=== PATIENT | male | born 1955 | race Caucasian/White ===

== ENCOUNTER 2023-11-26 08:48 | Observation (INO) ==
--- NOTE | 2023-10-27 11:57 | PAT Medication Instructions ---
Medication Instructions Date of Service October 27, 2023 Home Medications Vitamin D3 1 tab PO QAM aspirin 81 mg capsule 81 mg PO QAM celecoxib 100 mg capsule 100 mg PO HS clopidogrel 75 mg tablet 75 mg PO QAM doxepin 75 mg capsule 75 mg PO HS isosorbide mononitrate 30 mg tablet,extended release 24 hr 30 mg PO QAM levothyroxine 200 mcg tablet 200 mcg PO QAM magnesium 1 tab PO QAM nadolol 20 mg tablet 20 mg PO QAM rosuvastatin 40 mg tablet 40 mg PO QAM ASK your surgeon for instructions celecoxib 100 mg capsule 100 mg PO HS ASK your prescriber and surgeon clopidogrel 75 mg tablet 75 mg PO QAM (will need to hold Plavix/clopidogrel for at least 7 days prior to surgery in order to get spinal anesthesia) DO NOT take the morning of surgery Vitamin D3 1 tab PO QAM magnesium 1 tab PO QAM Take morning of surgery With a small sip of water, OTHERWISE NOTHING TO EAT OR DRINK AFTER MIDNIGHT: aspirin 81 mg capsule 81 mg PO QAM (unless surgeon directed otherwise) isosorbide mononitrate 30 mg tablet,extended release 24 hr 30 mg PO QAM levothyroxine 200 mcg tablet 200 mcg PO QAM nadolol 20 mg tablet 20 mg PO QAM rosuvastatin 40 mg tablet 40 mg PO QAM Take evening before surgery doxepin 75 mg capsule 75 mg PO HS Other Notes If you have any questions please call us at [phone] or [phone] or [phone] or [phone]
--- NOTE | 2023-10-27 12:28 | Anesthesiology Consultation ---
Date of Service October 27, 2023 Assessment & Plan (1) Encounter for pre-operative examination: Chart Review Chart Review: Acceptable Risk for Surgery (pending routine cardio visit if available ) and Patient seen in Pre Admission Testing - Please obtain upcoming routine cardio office visit if available ([facility]- Dr Martin) (being seen October 2023 per patient) - Patient is NOT an OPJ candidate (currently 23 hour obs) Per PAT appt on 10/27/23, no recent illness/disease exposures, illness related symptoms, or recent illness/disease positive tests. Will leave to surgeon's discretion if preop Covid testing needed Teaching & Discussion Pre-Anesthesia Teaching/Discussion Notes: Instructed NPO after midnight before surgery,except medications with 15 cc of water. Medication instructions provided according to the PAT guidelines. History Surgery Operation Date: 11/26/23 11:55 Proposed Procedures p Left Total Knee Arthroplasty - Jim Mays, Height/Weight Height: 5 ft 6 in Weight: 106.9 kg Allergies Allergy/AdvReac Type Severity Reaction Status Date / Time vancomycin Allergy Red Man's Verified 10/27/23 11:08 Disease Medications Home Medications Medication Instructions Recorded Confirmed Last Taken Vitamin D3 1 tab PO QAM 10/27/23 10/27/23 Unknown aspirin 81 mg capsule 81 mg PO QAM 10/27/23 10/27/23 Unknown celecoxib 100 mg capsule 100 mg PO HS 10/27/23 10/27/23 Unknown clopidogrel 75 mg tablet 75 mg PO QAM 10/27/23 10/27/23 Unknown doxepin 75 mg capsule 75 mg PO 10/27/23 10/27/23 Unknown isosorbide mononitrate 30 mg 30 mg PO QAM 10/27/23 10/27/23 Unknown tablet,extended release 24 hr levothyroxine 200 mcg tablet 200 mcg PO QAM 10/27/23 10/27/23 Unknown magnesium 1 tab PO QAM 10/27/23 10/27/23 Unknown nadolol 20 mg tablet 20 mg PO QAM 10/27/23 10/27/23 Unknown rosuvastatin 40 mg tablet 40 mg PO QAM 10/27/23 10/27/23 Unknown Past Medical History Medical History (Updated 10/31/23 @ 20:57 by Amy Sauer PA-C) CAD (coronary artery disease) s/p 3 cardiac stents 04/2022 Cardiac murmur ECHO 04/2022 showed no significant valvular disease Hx MRSA infection 2001, right shoulder, dx [facility]>no current issues Hyperlipidemia Hypertension Hypothyroidism nursing home current use of anticoagulant therapy Sleep apnea cpap Exercise / Class Metabolic Activity II 4-5 Yardwork/Stairs/Walk up hill (one flight of stairs - no chest pain or SOB; [place]- does daily activities without issues ) Past Surgical History Surgical History History of cardiac cath 04/2022, chest pressure, taken to [facility] in [place], x3 stents; f/u dr. martin, [facility] cardio History of carpal tunnel surgery of right wrist History of heart artery stent 04/2022, chest pressure, taken to [facility] in [place], x3 stents [employer]; f/u dr. martin, [facility] cardio Hx of colonoscopy Hx of lumbosacral spine surgery 1995, 1996, 2017>hardware intact Hx of repair of right rotator cuff 2001 Past Anesthesia History No Hx of Anesthesia Complications and No Family Hx of Anesthesia Complications History of PONV No Hx of PONV and No Hx of Motion Sickness Social History Smoking Status: Former smoker Do You Dip or Chew Tobacco: No Smoking End Date: 1992 Hx Alcohol Use: Yes Alcohol type: hard liquor alcohol intake frequency: a few times a week Hx Substance Use: No substance use type: does not use Review of Systems - Occ reflux- relieved with OTC Omeprazole Patient denies chest pain, shortness of breath, dyspnea on exertion, cough, wheezing, palpitations. No hx of seizures, stroke. No hx of blood clots or blood transfusions Physical Exam Vital Signs VITALS BP 117/61 P 58bpm TEMP 97.9 SP02 95% RESP 16 Constitutional no acute distress ENMT Mouth: no TMJ clicking Thyromental Distance: > or= 3.5 Finger Breadths (3.5) Mallampati Class: III Neck + short neck and + limited neck extension Respiratory normal respiratory effort; no respiratory distress Auscultation: lungs clear to auscultation bilaterally; no wheezes Cardiovascular Rate/Rhythm: regular rate and regular rhythm Heart Sounds: + murmur (II-III/ murmur ) Vessels: no carotid bruit Musculoskeletal Spine: no pain with cervical ROM Extremities: extremities normal to inspection Psychiatric Orientation: alert Lab Results Anesthesia Preop Results Results Anesthesia Widget: WBC 5.21 K/ul (4.8-10.8) 10/27/23 Hgb 14.0 g/dl (14.0-18.0) 10/27/23 Hct 42.0 % (42.0-52.0) 10/27/23 Plt 161 K/uL (130-400) 10/27/23 Na 140 mmol/L (136-145) 10/27/23 K 4.0 mmol/L (3.5-5.1) 10/27/23 Cl 107 mmol/L (98-107) 10/27/23 CO2 28 mmol/L (21-32) 10/27/23 BUN 18 mg/dl (6-23) 10/27/23 Creat 0.87 mg/dl (0.6-1.4) 10/27/23 Glucose Level 165 mg/dl (70-99(Fasting)) H 10/27/23 PT 10.9 Seconds (9.0-12.0) 10/27/23 PTT 25 Seconds (21-31) 10/27/23 INR 1.0 (0.9-1.1) 10/27/23 Blood Type A Positive 10/27/23 Antibody Screen NEGATIVE 10/27/23 Testing Electrocardiogram Date: 10/27/23 Findings: + NSR @ (60bpm) Normal EKG per cardio Chest X-Ray Date: 10/27/23 FINDINGS: No lines and tubes are seen. Cardiomegaly is noted. The aortic arch is calcified. The lungs are clear. No evidence of pleural effusion or pneumothorax. IMPRESSION: No acute chest disease. Echocardiogram Date: 05/02/22 EF: 55-60% LV Function: normal RWMA: + none Other Findings: no LVH or no diastolic dysfunction Valvular Disease: + no significant valvular disease RV systolic function is normal There is no pericardial effusion
--- NOTE | 2023-11-25 12:18 | History & Physical Report ---
Date of Service November 25, 2023 Assessment & Plan (1) Osteoarthritis of left knee: We will proceed with a left total knee arthroplasty. Postoperatively he will be started on aspirin and Plavix for DVT prophylaxis and kept overnight in the hospital for postop medical management. He plans to have the hospital set up home health for discharge. History of Present Illness Chief Complaint: Osteoarthritis of the left knee. Primary Care Provider: VIJAY PCP Morales is a pleasant 68-year-old male who has been dealing with chronically increasing left knee pain. He has been treated at another facility. He has had x-rays and MRIs of both knees. 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 After failing extensive conservative treatment, he has elected proceed with a left total knee arthroplasty. Allergies Allergy/AdvReac Type Severity Reaction Status Date / Time vancomycin Allergy Red Man's Verified 10/27/23 11:08 Disease Home Medications Medication Instructions Recorded Confirmed Type Vitamin D3 1 tab PO QAM 10/27/23 10/27/23 History aspirin 81 mg capsule 81 mg PO QAM 10/27/23 10/27/23 History celecoxib 100 mg capsule 100 mg PO HS 10/27/23 10/27/23 History clopidogrel 75 mg tablet 75 mg PO QAM 10/27/23 10/27/23 History doxepin 75 mg capsule 75 mg PO HS 10/27/23 10/27/23 History isosorbide mononitrate 30 mg 30 mg PO QAM 10/27/23 10/27/23 History tablet,extended release 24 hr levothyroxine 200 mcg tablet 200 mcg PO QAM 10/27/23 10/27/23 History magnesium 1 tab PO QAM 10/27/23 10/27/23 History nadolol 20 mg tablet 20 mg PO QAM 10/27/23 10/27/23 History rosuvastatin 40 mg tablet 40 mg PO QAM 10/27/23 10/27/23 History Past Med/Surg History Medical History Cardiac murmur ECHO 04/2022 showed no significant valvular disease CAD (coronary artery disease) s/p 3 cardiac stents (proximal to mid LAD and first diagonal )04/2022 Hx MRSA infection 2001, right shoulder, dx [facility]>no current issues ferry terminal supervisor current use of anticoagulant therapy Sleep apnea cpap Hypothyroidism Hyperlipidemia Hypertension Surgical History History of carpal tunnel surgery of right wrist Hx of repair of right rotator cuff 2002 Hx of lumbosacral spine surgery 1995, 1996, 2018>hardware intact Hx of colonoscopy History of heart artery stent 04/2022, chest pressure, taken to [facility] in [place], x3 stents [employer]; f/u dr. martin, [facility] cardio History of cardiac cath 04/2022, chest pressure, taken to [facility] in [place], x3 stents; f/u dr. martin, [facility] cardio Social History Smoking Status: Former smoker Tobacco Type: Cigarettes Smoking End Date: 1992; Second Hand Exposure: Yes (hx-none in last 25 years); Do You Dip or Chew Tobacco: No; Tobacco Cessation Education Requested by Patient: No Hx Alcohol Use: Yes Alcohol type: hard liquor Hx Substance Use: No Preferred Language: Monegasque Communication Ability: Effective Crystal Growing Technician Required: No Beliefs That Will Affect Care: None Current Living Situation: Spouse Other Information That Helps Us Care for You: No Feels Safe at Home: Yes Safety Concerns: Feels Safe At This Time Assistive Devices: None and CPAP Review of Systems All systems reviewed & are unremarkable except as noted in HPI & below. Physical Exam On physical examination of the left knee, he has a varus deformity. He has tenderness palpation of the distal medial femoral condyle and over the medial joint line. Constitutional WD/WN, vitals as above Eyes PERRL, conjunctivae normal, anicteric sclerae ENMT external ear and nose normal, oropharynx normal Neck trachea midline, no thyromegaly Respiratory normal respiratory effort Cardiovascular RRR, no murmur, no edema Gastrointestinal (Abdomen) normal bowel sounds, soft, nontender, no hepatosplenomegaly Psychiatric A+Ox3, euthymic affect Results & Data Results & Data Laboratory Results . Diagnostic Findings X-rays of the left knee show advanced medial compartmental arthritis with joint space narrowing, osteophyte formation, and [id number] articulation PG Care Time/CCT Total # of Minutes Spent Total Time Spent with Patient: Total time spent is greater than 50% in coordination of care (as documented) at patient's floor/unit and/or counseling patient: Coding Level of Care Code None Diagnoses Osteoarthritis of left knee M17.12
[~2023-11-26 08:48] MED LIST: ROPIVACAINE 0.5% 5 MG/ML 30 ML VIAL ONE
[2023-11-26] MEDS: LR 500ML BOLUS, THEN 15ML/HR IV SCH ×2 (09:26→09:41)
[2023-11-26] MEDS: ACETAMINOPHEN 500 MG TAB PO SCH ×2 (09:26→14:18)
[2023-11-26] MEDS: LR 60ML/HR IV SCH (09:26)
[2023-11-26] MEDS: FAMOTIDINE 20 MG TAB PO SCH (09:26)
[2023-11-26] MEDS: GABAPENTIN 300 MG CAP PO SCH (09:26)
[2023-11-26] MEDS: dexAMETHasone**PF** 10 MG/ML VIAL IV SCH (09:35)
[2023-11-26] MEDS ORDERED: fentaNYL citrate PF 100 MCG/2 ML VIAL IV PRN (10:08)
[2023-11-26] MEDS ORDERED: ATROPINE SULFATE 0.1 MG/ML 10ML SYR IV PRN (10:08)
[2023-11-26] MEDS ORDERED: HYDROmorphone INJ 2 MG/ML SYR/VIAL IV PRN (10:08)
[2023-11-26] MEDS ORDERED: ePHEDrine sulfate 50 MG/ML AMP IV PRN (10:08)
[2023-11-26] MEDS ORDERED: ONDANSETRON INJ 2 MG/ML 2 ML VIAL IV PRN ×2 (10:08→13:24)
--- NOTE | 2023-11-26 10:14 | History & Physical Bridge Note ---
Date of Service November 26, 2023 History & Physical Bridge Note I have examined the patient, reviewed the History & Physical and in the interval since the performance of the History & Physical I have noted the following changes of clinical significance: no changes noted
[2023-11-26] MEDS ORDERED: fentaNYL citrate PF 100 MCG/2 ML VIAL ONE (10:20)
[2023-11-26] MEDS ORDERED: MIDAZOLAM HCL 1 MG/ML 2ML VIAL ONE (10:20)
[2023-11-26] MEDS ORDERED: PROPOFOL IV EMULSION 10 MG/ML 20 ML VIAL IV ONE (10:38)
[2023-11-26] MEDS ORDERED: LIDOCAINE 2% 2 ML VIAL/AMP(20MG/ML) INFIL ONE (10:38)
[2023-11-26] MEDS: ORTHO JOINT ANESTHETIC ONE (10:54)
[2023-11-26] MEDS: TRANEXAMIC ACID 1,000 MG **IV Pre-op IV SCH (10:57)
[2023-11-26] MEDS: ceFAZolin 2000MG 2,000 MG/15 ML SYR IV SCH ×2 (11:33→18:27)
[2023-11-26] MEDS: ROPIV 0.5% 246mg, Ketorolac 30mg, EPINEPHrine 0.5mg in NSS INFIL SCH (11:44)
[2023-11-26] MEDS ORDERED: ePHEDrine sulfate 50 MG/5 ML SYR ONE (12:11)
[2023-11-26] MEDS: TRANEXAMIC ACID 1,000 MG **IV Intra-op IV SCH (12:21)
--- NOTE | 2023-11-26 13:15 | XRay Report ---
TWO VIEWS LEFT KNEE CLINICAL HISTORY: Postoperative examination. FINDINGS: AP and crosstable lateral portable views of the left knee are obtained. A left knee arthrop lasty is in near anatomic alignment. There has been undersurface remodeling of the patella. No acute fracture is seen. There are expected postoperative changes around the knee including skin clips, soft tissue edema, and subcutaneous gas. IMPRESSION: Expected postoperative changes status post left knee arthroplasty. No acute fracture is s een. ACT 112: Negative or not required by law. Electronically signed by: Brando Tavares M.D. 11/26/2023 1:14 PM
--- NOTE | 2023-11-26 13:16 | Anesthesiology Progress Note ---
Date of Service November 26, 2023 Anesthesia Post Procedure Vital Signs Vital Signs: Temp Pulse Pulse Resp BP BP Pulse Ox 11/26/23 13:05 55 L 21 121/74 96 11/26/23 12:55 59 L 17 119/76 97 11/26/23 12:46 36.0 C L 60 24 114/70 96 11/26/23 09:16 11/26/23 09:16 36.6 C 60 20 150/84 H 96 O2 Del Method 11/26/23 13:05 Room Air 11/26/23 12:55 Room Air 11/26/23 12:46 Room Air 11/26/23 09:16 Room Air 11/26/23 09:16 Room Air Transfer of Care Handoff Completed per policy Notes Mental Status: alert / awake / arousable and participated in evaluation Patient Amnestic to Procedure: Yes Nausea / Vomiting: adequately controlled Pain: adequately controlled Airway Patency, RR, SpO2: stable & adequate BP & HR: stable & adequate Hydration State: stable & adequate Neuraxial Anesthesia: was administered and sensory block is resolving Anesthetic Complications: no major complications apparent and Pt Satisfied with anesthetic care
--- NOTE | 2023-11-26 13:18 | Operative Report ---
PG Post Operative Report Pre & Post Diagnosis Operation Date: 11/26/23 11:00 Pre-Op Diagnosis: Degenerative Joint Disease Left Knee Post-Op Diagnosis: Degenerative Joint Disease Left Knee I identified the patient and participated in the time-out.: Yes Procedure Operation Date: 11/26/23 11:00 Actual Procedures p Left Total Knee Arthroplasty, Cemented(Left) - Jim Mays DO Surgeon Jim Mays DO Representative Personal Service Jim Larsen PA-C Estimated Blood Loss 30 Findings Consistent with Post-Op Diagnosis Specimens Left femoral and tibial bone Description of Procedure Implants used: I used a [employer] Person[employer] total knee arthroplasty system with a size 8 standard PS femur, F tibia, 34 oval patella, and a size 14 CPS polyethylene bearing. All components were cemented in place with Biomet cement. Morales arrived [facility] for the above procedure. He was seen in the preoperative holding area and the operative extremity was identified and signed. He was given a preoperative antibiotic, TXA, a spinal anesthetic and an adductor nerve block. He was taken back to the operating room and laid on the table in supine position. He was given basic sedation. The operative knee was then prepped and draped in sterile fashion. A timeout was done, and the patient and the operative extremity was properly identified. A midline incision was made directly over the patella. Dissection was taken down to the extensor mechanism. A medial parapatellar arthrotomy was used. The medial retinaculum was released and the fat pad was mostly excised. The knee was flexed and the ACL, PCL, and meniscus were removed. A drill was sent down the center of the femoral canal followed by an intramedullary alka. Off that alka a distal femoral cutting block was placed. 9 mm was resected off the distal femur at 5 of valgus. A posterior referencing AP sizing guide was then placed on the distal femur. The femur measured to be a size 8. 2 drill holes were placed in 3 of external rotation. A 4-in-1 cutting block was then impacted into place. Anterior, posterior, and chamfer cuts were then made. The proximal tibia was then exposed. An external tibial alignment guide was placed. A tibial cut guide was then anchored in place and the proximal tibia was then resected. The posterior aspect of the knee was then opened up and any additional meniscus fragments and osteophytes were removed. The tibia measured to be a size F. The tibial plate was then placed in the appropriate rotation and the tibia was drilled and punched. Trial components were then placed. I used a size 14 CPS polyethylene insert. The knee was brought through a full range of motion and felt to be stable. The peg holes for the femoral component were then drilled. The patella was then everted and 9 mm was resected off the posterior aspect of the patella. The patella measured to be a size 34 oval. 3 peg holes were then drilled. A trial patella was placed. The knee was once again brought through a full range of motion and felt to be stable. Trial components were then removed. The surrounding soft tissues were injected with 100 cc of an orthopedic pain control cocktail. All components were then cemented into place with Biomet cement. The final polyethylene insert was then snapped into place. Once cement was dry the tourniquet was deflated. Hemostasis was obtained. A dilute betadyne lavage was then done for 3 minutes. The joint was then irrigated with normal saline solution. The medial parapatellar arthrotomy was then closed with #1 Vicryl suture. The skin was closed with 2-0 Vicryl, 3-0V lock suture, and salo. A soft compressive dressing was placed. He was then transferred to a hospital bed and taken to the postanesthesia care unit in stable condition. He tolerated the procedure well. Jim Larsen PA-C, was present for the entire procedure. He was critical for patient positioning, prepping, draping, retraction exposure, wound closure and application of sterile dressing. I attest to the content of the Intraoperative Record and any orders documented therein. Any exceptions are noted below.
[2023-11-26] MEDS ORDERED: MAGNESIUM HYDROXIDE SUSP 30 ML UDC PO PRN (13:24)
[2023-11-26] MEDS ORDERED: METOCLOPRAMIDE HCL INJ 5 MG/ML 2 ML VIAL IV PRN (13:24)
[2023-11-26] MEDS ORDERED: HYDROmorphone INJ 0.5 MG/0.5 ML SYR IV PRN (13:24)
[2023-11-26] MEDS ORDERED: bisacodyL 10 MG SUPP PR PRN (13:24)
[2023-11-26] MEDS ORDERED: NALOXONE HCL 0.4 MG/1 ML VIAL/CARP IV PRN (13:24)
[2023-11-26] MEDS: SODIUM CHLORIDE 0.9% 1,000 ML IV SCH (13:38)
[2023-11-26] MEDS: KETOROLAC TROMETHAMINE 15 MG/ML VIAL IV SCH (17:16)
[2023-11-26] MEDS: DOCUSATE SODIUM 100 MG CAP PO SCH (20:12)
[2023-11-26] MEDS: SENNA 8.6 MG TAB PO SCH (20:13)
[2023-11-26] MEDS: ASPIRIN 81 MG ECTAB PO SCH (20:13)
[2023-11-26] MEDS: DOXEPIN HCL 75 MG CAPSULE PO SCH (22:09)
[2023-11-27] MEDS: LEVOTHYROXINE SODIUM 200 MCG TABLET PO SCH (06:10)
[2023-11-27] MEDS: nadoloL 40 MG TAB PO SCH (07:57)
[2023-11-27] MEDS: MULTIVITAMIN TAB PO SCH (07:58)
[2023-11-27] MEDS: ROSUVASTATIN CALCIUM 20 MG TAB PO SCH (07:58)
[2023-11-27] MEDS: CLOPIDOGREL BISULFATE 75 MG TAB PO SCH (07:58)
[2023-11-27] MEDS: dexAMETHasone 4 MG TAB PO SCH (07:58)
[2023-11-27] MEDS: ISOSORBIDE MONO EXTENDED REL 30 MG TABCR PO SCH (07:58)
--- NOTE | 2023-11-27 09:25 | Discharge Summary ---
Date of Service November 27, 2023 Admission HPI (Per Admitting) Morales is a pleasant 68-year-old male who has been dealing with chronically increasing left knee pain. He has been treated at another facility. He has had x-rays and MRIs of both knees. 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 After failing extensive conservative treatment, he has elected proceed with a left total knee arthroplasty. Admission Exam (Per Admitting) On physical examination of the left knee, he has a varus deformity. He has tenderness palpation of the distal medial femoral condyle and over the medial joint line. Principal Diagnosis Same as "Discharge Diagnosis" noted below under Discharge Instructions. Discharge Exam On physical examination of the left knee, the dressing is clean and dry. His leg is out in full extension. He has active dorsiflexion plantarflexion of the left ankle.. Discharge Data Procedures Performed Operation Date: 11/26/23 11:00 Actual Procedures p Left Total Knee Arthroplasty, Cemented(Left) - Jim Mays DO Ordered Studies 11/26/23 05:00 US - OR guided needle placemen Routine Hospital Course (1) Status post left knee replacement: On November 26, 2023 Morales arrived at [facility] and underwent a left knee replacement without complication. He had a spinal anesthetic. Postoperatively he was started on aspirin and Plavix for DVT prophylaxis and transferred to the general orthopedic floors. His hospital course was uneventful. On postop day #1, his vital signs were stable and his pain was well-controlled. He was able to put his feet well with physical therapy doing ambulation and range of motion exercises. He was then discharged home. He will follow-up with orthopedics in 2 weeks. PG Care Time/CCT Total # of Minutes Spent Total Time Spent with Patient: Total time spent is greater than 50% in coordination of care (as documented) at patient's floor/unit and/or counseling patient: Discharge Plan Discharge Items Patient Disposition: Home - Self-Care Reason For Visit: Degenerative Joint Disease Left Knee Discharge Diagnosis: Left knee replacement Activity: Per Instructions section Non-emergency contact: Surgeon Call non-emergency contact if: your wound has increased redness and your wound has increased drainage Follow-up/Referrals: [facility],[place], [facility] [Primary Care Provider] - Diet: Regular Addtl Attending Provider Instructions: Activity and Therapy Recommendations: * If you are using [facility] then therapy will be provided at your home until they feel you have accomplished all of your goals. * If you are using [facility] then Physical Therapy will be provided until they feel you are ready to start Outpatient Physical Therapy. * If you are not using home therapy then Outpatient Physical Therapy should start about 3-5 days from your day of surgery. Therapy will last about 6-10 weeks * It is important not to put a pillow under your knee when you are relaxing or sleeping. It is just as important to make sure you are getting your knee perfectly straight as it is to regain your knee bend. * You were shown a series of exercises in the hospital. Do these exercises three times each day including the exercises you were shown in physical therapy. * Get up and walk several times each day. For the first four weeks, try not to stand or walk for more than one hour at a time. If you do stand or walk for more than one hour, you will not hurt anything, but your leg will likely swell. * As you feel comfortable, you may change from the walker or crutches to a cane and then to independent walking. Medications: * Narcotic You will likely be sent home from the hospital with a prescription for the narcotic pain medication that worked best throughout your stay. * Cefadroxil -take the antibiotic twice a day for 10 days to help with infection. * Aspirin Most patients will be required to take Aspirin 81mg twice a day for 6 weeks after surgery. This is obtained [id number] and a prescription is not necessary. * Other medications may be prescribed for specific circumstances. If you have any questions, please call the office at . * Resume previous home medications unless otherwise instructed TEDs/Elastic Stockings: The white elastic stockings help limit swelling and prevent blood clots from forming in your legs.~ The more you wear them, the more they work. Wear them for six weeks. Dressing Care: The dressing can be changed after physical therapy on postop day #1. Daily dry dressing changes for a few days, especially if the incision is still draining some. If the incision is not draining then you may leave the salo open to air. If there is a little bit of drainage or if the salo are getting stuck on your clothing then cover the incision with a dry dressing. The salo will be removed at your 2 week follow-up appointment. Showering: You may shower 5 days from the day of surgery as long as the incision is no longer draining. You may shower with the salo exposed. Let soapy water run over the salo and pat them dry. Do not scrub or soak the incision. Things To Watch For: * Drainage from the incision site that occurs more than one week after your surgery. * Increased redness at the incision site. * Fever above 102 degrees Fahrenheit. * Unusual chest pain or shortness of breath. * Call [facility] at with any of the above pro blems Follow-Up Visit: Follow-up with Dr. Mays's PA (Jim Larsen) 2-3 weeks after your day of surgery. He will remove your salo and answer any questions. If you have any additional questions or concerns, Dr Mays is usually in the office at the same time and will be available An appointment was probably scheduled when you signed-up for surgery in the office. If you have any questions call Office Instructions: More detailed instructions as well as Frequently Asked Questions were provided in a folder by our office when you signed-up for surgery. Please review these instructions when you get home. If you have any further questions or concerns, please feel free to call the office at [phone] Pending Studies at Discharge: No Stand-Alone Forms: [facility], Pain - Opioid Pain Management Medications and DC Order Prescriptions: New oxycodone 5 mg Tablet 5 mg PO Q4H PRN (Reason: pain) Qty: 30 0RF cefadroxil 500 mg capsule 500 mg PO BID 10 Days Qty: 20 0RF Continued isosorbide mononitrate 30 mg tablet extended release 24 hr 30 mg PO QAM doxepin 75 mg capsule 75 mg PO HS clopidogrel 75 mg tablet 75 mg PO QAM nadolol 20 mg tablet 20 mg PO QAM levothyroxine 200 mcg tablet 200 mcg PO QAM celecoxib 100 mg capsule 100 mg PO HS rosuvastatin 40 mg tablet 40 mg PO QAM Vitamin D3 1 tab PO QAM magnesium 1 tab PO QAM Changed aspirin 81 mg Capsule 81 mg PO BID 42 Days Qty: 0 0RF Discharge Orders: Discharge Order (Routine); Ordered 11/27/23 Ordered By: Jim Aquino/Other Patient Handouts: Total Knee Replacement Admission Data Admit Date/Time: 11/26/23 12:45 Attending Provider: Jim Mays Admit Provider: Jim Mays Primary Care Provider: [place] Rosales Other Providers: [facility],Home Healthcare Other Interventions: Discharge Summary Assessment (RN) Last Done: 11/27/23 09:20
--- NOTE | 2023-11-27 09:25 | Orthopedic Progress Note ---
Date of Service November 27, 2023 Assessment & Plan (1) Status post left knee replacement: Overall he is doing very well. He is not having much pain in the left knee. He will be seen by physical therapy today for ambulation and range of motion exercises. The nursing staff can change his dressing after physical therapy. He is on aspirin and Plavix for DVT prophylaxis. He can be discharged home later today. He will follow-up with orthopedics in 2 weeks. Alexander Nielsen was seen and examined at bedside this morning. Overall is doing very well. He is not having much pain in the left knee. He has been up and ambulating to the bathroom. He has no complaints.. Review of Systems All systems reviewed & are unremarkable except as noted in HPI & below. Physical Exam On physical examination of the left knee, the dressing is clean and dry. His leg is out in full extension. He has active dorsiflexion plantarflexion of the left ankle.. Results & Data Results & Data Laboratory Results . Diagnostic Findings Postoperative x-rays of the left knee show the prosthesis to be in anatomic alignment without any evidence of fracture, his cage, or loosening.. PG Care Time/CCT Total # of Minutes Spent Total Time Spent with Patient: Total time spent is greater than 50% in coordination of care (as documented) at patient's floor/unit and/or counseling patient: Coding Level of Care Code 80839 Post Operative Follow-Up Diagnoses Status post left knee replacement Z96.652
[2023-11-27] MEDS: oxyCODONE HCL IR 5 MG TAB (IMMEDIATE RELEASE) PO PRN (09:54)
== END 2023-11-27 10:20 | disposition home health service (06) ==
LOC: 3E 08:48 → ASU 08:48

== ENCOUNTER 2023-12-06 20:50 | Observation (INO) ==
[2023-12-06 22:20] LABS: Alanine Aminotransferase 32 U/L (7-52); Albumin Globulin Ratio 1.3 (0.9-2); Alkaline Phosphatase 98 U/L (34-104); Anion Gap 8 (3-11); Aspartate Aminotransferase 31 U/L (13-39); BUN Creatinine Ratio 10.3 (10-20); Bilirubin,Total 0.6 mg/dl (0.2-1.0); Blood Urea Nitrogen 18 mg/dl (6-23); Carbon Dioxide 25 mmol/L (21-32); Chloride 100 mmol/L (98-107); Est GFR (Non-African American) 38.9 ml/min; Glucose 119 mg/dl (70-99(Fasting)); Potassium 4.4 mmol/L (3.5-5.1); Sodium 133 mmol/L (136-145)
[2023-12-06 22:25] LABS: Hematocrit (blood only) 39.7 % (42.0-52.0); Hemoglobin 13.2 g/dl (14.0-18.0); Mean Corpuscular Hemoglobin 29.6 pg (25.0-34.0); Mean Corpuscular Hgb Conc 33.2 g/dL (32.0-36.0); Mean Platelet Volume 9.5 fL (9.4-12.4); Platelet Count 192 K/uL (130-400); RDW Coefficient of Variation 13.7 % (11.5-14.5); RDW Standard Deviation 44.8 fL (36.4-46.3); Red Blood Count 4.46 M/uL (4.70-6.10); White Blood Count 5.29 K/ul (4.8-10.8)
[2023-12-06 22:27] LABS: Troponin I High Sensitivity 4.2 pg/ml (0-20)
[2023-12-06 22:45] LABS: Partial Thromboplastin Ratio 0.9; Partial Thromboplastin Time 25 Seconds (21-31); Prothrombin Time 10.9 Seconds (9.0-12.0)
--- NOTE | 2023-12-06 23:20 | Emergency Department Note ---
History of Present Illness General Chief complaint: Rectal Bleed Stated complaint: KNEE SURGERY 10 DAYS AGO,BLOOD IN STOOL,BLOODCLOTS Time Seen by Provider: 12/06/23 23:06 History of Present Illness This 68-year-old male that had a knee replacement [address] Mays presents ER complaining of fever, chills for the past few days. Patient states he does have some left knee discomfort but does not feel like his knee is infected. Patient was on cefadroxil and then was switched to Bactrim by Ortho. Patient has a history of MRSA. Patient denies chest pain, dyspnea, abdominal pain, vomiting, diarrhea, cough, congestion. Patient states he has had some blood in the stool but does have a history of hemorrhoids and constipation. Home Medications Medication Instructions Recorded Confirmed Type celecoxib 100 mg capsule 100 mg PO HS 10/27/23 12/07/23 History clopidogrel 75 mg tablet 75 mg PO QA 10/27/23 12/07/23 History doxepin 75 mg capsule 75 mg PO HS 10/27/23 12/07/23 History isosorbide mononitrate 30 mg 30 mg PO [facility] 10/27/23 12/07/23 History tablet,extended release 24 hr nadolol 20 mg tablet 20 mg PO [facility] 10/27/23 12/07/23 History rosuvastatin 40 mg tablet 40 mg PO [facility] 10/27/23 12/07/23 History aspirin 81 mg capsule 81 mg PO BID 42 days #0 caps 11/27/23 12/07/23 Rx oxycodone 5 mg tablet 5 mg PO Q4H PRN pain #30 tabs 11/27/23 12/07/23 Rx sulfamethoxazole 800 1 tab PO BID 7 days #14 tabs 12/01/23 12/07/23 Rx mg-trimethoprim 160 mg tablet (Bactrim DS) cholecalciferol (vitamin D3) 25 25 mcg PO DAILY 12/07/23 12/07/23 History mcg (1,000 unit) capsule (Vitamin D3) cyanocobalamin (vitamin B-12) 1,000 mcg PO DAILY 12/07/23 12/07/23 History 1,000 mcg tablet (Vitamin B-12) docusate sodium 100 mg capsule 100 mg PO BID 12/07/23 12/07/23 History levothyroxine 175 mcg tablet 175 mcg PO DAILYBB 12/07/23 12/07/23 History magnesium 250 mg tablet 250 mg PO DAILY 12/07/23 12/07/23 History potassium citrate 99 mg capsule 99 mg PO DAILY 12/07/23 12/07/23 History Allergies Allergy/AdvReac Type Severity Reaction Status Date / Time vancomycin Allergy Intermediate Red Man's Verified 12/07/23 00:48 Disease Past Med/Surg History Problem List (Updated 12/07/23 @ 02:58 by JUAN MANUEL Aaron) DVT prophylaxis THOMAS (acute kidney injury) Hematochezia (Acute) Fever (Acute) Status post left knee replacement (~11/2023) Osteoarthritis of left knee Medical History (Updated 12/07/23 @ 02:58 by JUAN MANUEL Aaron) Cardiac murmur ECHO 04/2022 showed no significant valvular disease CAD (coronary artery disease) s/p 3 cardiac stents (proximal to mid LAD and first diagonal )04/2022 Hx MRSA infection 2001, right shoulder, dx [facility]>no current issues group home current use of anticoagulant therapy Sleep apnea cpap Hypothyroidism Hyperlipidemia Hypertension Surgical History History of carpal tunnel surgery of right wrist Hx of repair of right rotator cuff 2001 Hx of lumbosacral spine surgery 1995, 1996, 2017>hardware intact Hx of colonoscopy History of heart artery stent 04/2022, chest pressure, taken to [facility] in [place], x3 stents [employer]; f/u dr. martin, [facility] cardio History of cardiac cath 04/2022, chest pressure, taken to [facility] in [place], x3 stents; f/u dr. martin, [facility] cardio Social History Smoking Status: Former smoker Tobacco Type: Cigarettes Second Hand Exposure: Yes (hx-none in last 25 years); Do You Dip or Chew Tobacco: No; Hx Alcohol Use: Yes Alcohol type: hard liquor Hx Substance Use: No Preferred Language: Yemeni Communication Ability: Effective Lamp Tester And Inspector Required: No Beliefs That Will Affect Care: None Current Living Situation: Spouse Feels Safe at Home: Yes Assistive Devices: CPAP and Walker Review of Systems A total of 10 systems reviewed and were otherwise negative Physical Exam Vital Signs Vital Signs - 24 hr 12/06/23 21:17 12/06/23 22:22 12/06/23 23:00 Temperature 38.1 C H Temperature Source Oral Pulse Rate 95 H 95 H Pulse Rate [Apical] 87 Pulse Rhythm Pulse Rhythm [Apical] Regular Pulse Strength [Apical] Normal Respiratory Rate 18 18 Respiratory Effort / Characteristics Non-Labored Spontaneous Non-Labored Spontaneous Respiratory Depth Normal Normal Respiratory Pattern Regular Regular Blood Pressure 147/77 H Blood Pressure [Right Arm] 156/86 H Blood Pressure Mean 100 Blood Pressure Mean [Right Arm] 109 Blood Pressure Position Sitting Blood Pressure Position [Right Arm] Lying Pulse Oximetry 96 98 Oxygen Delivery Method Room Air Room Air Sepsis Recent Fever Within 48 Hours Yes Sepsis New/Unexplained Change in Mental Status N/A Sepsis Action Taken by Nursing No Action Required 12/06/23 23:00 12/07/23 00:43 12/07/23 02:22 Temperature 38.9 C H Temperature Source Oral Pulse Rate 86 80 Pulse Rate [Apical] 92 H Pulse Rhythm Regular Pulse Rhythm [Apical] Regular Pulse Strength [Apical] Normal Respiratory Rate 18 18 Respiratory Effort / Characteristics Non-Labored Spontaneous Respiratory Depth Normal Respiratory Pattern Regular Blood Pressure Blood Pressure [Right Arm] 116/73 Blood Pressure Mean Blood Pressure Mean [Right Arm] 87 Blood Pressure Position Blood Pressure Position [Right Arm] Lying Pulse Oximetry 98 98 Oxygen Delivery Method Room Air Room Air Sepsis Recent Fever Within 48 Hours Sepsis New/Unexplained Change in Mental Status Sepsis Action Taken by Nursing VITALS: Vitals are noted on the nurse's note and reviewed by myself. Vital signs febrile. GENERAL: Pleasant gentleman with present, in no acute distress, nondiaphoretic, well-developed well-nourished. SKIN: The skin was without rashes, erythema, edema, or bruising. There is no tenting of the skin. Capillary reflex less than 2 seconds. HEAD: Normocephalic atraumatic. EARS: External auditory canals clear EYES: Pupils equal round and reactive to light and accommodation. Conjunctivae without injection, sclerae without icterus. Extraocular movements intact. NOSE: Patent, no discharge. MOUTH: Mucous membranes moist. Pharynx without erythema or exudate. Uvula midline. Airway patent. Tongue does not deviate. NECK: Supple without nuchal rigidity. No lymphadenopathy. No thyromegaly. Cervical spine is nontender. No JVD. HEART: Regular rate and rhythm LUNGS: Clear to auscultation bilaterally without wheezes, rales or rhonchi. No retractions or accessory muscle use. ABDOMEN: Positive bowel sounds x 4. Normal tympanic percussion. Soft, nontender, without masses or organomegaly. Garibay sign negative. No guarding or rebound tenderness. No CVA tenderness MUSCULOSKELETAL: No muscle atrophy, erythema, or edema noted. Left knee with salo intact with mild edema and warmth present. No drainage. No dehiscence. No signs of obvious cellulitis. Pedal pulses +2 equal present bilaterally. NEURO: Patient was alert and oriented to person place and time. Normal sensation to light and sharp touch. No focal neurological deficits. Course Administered Medications Discontinued Medications Sodium Chloride (Nss) 1,000 mls @ 999 mls/hr IV .Q1H1M ONE Stop: 12/07/23 00:15 Last Infusion: 12/07/23 01:21 Dose: Infused Documented By: Admin: 12/06/23 23:56 Dose: 999 mls/hr Documented By: BRITTANY Ceftriaxone Sodium (Rocephin) 2,000 mg in 50 mls @ 100 mls/hr IV NOW STA Stop: 12/06/23 23:44 Last Infusion: 12/07/23 00:35 Dose: Infused Documented By: Admin: 12/06/23 23:56 Dose: 100 mls/hr Documented By: BRITTANY Daptomycin 500 mg/ Syringe 10 mls @ 5 mls/min IV NOW STA; Protocol Stop: 12/06/23 23:16 Last Admin: 12/06/23 23:57 Dose: 5 mls/min Documented By: BRITTANY Acetaminophen (Ofirmev) 1,000 mg in 100 mls @ 400 mls/hr IV NOW STA Stop: 12/07/23 00:14 Last Infusion: 12/07/23 01:21 Dose: Infused Documented By: Admin: 12/07/23 00:46 Dose: 400 mls/hr Documented By: CLAYTON Ioversol (Optiray 320 125ml) 125 ml IV ONCE ONE Stop: 12/06/23 23:53 Last Admin: 12/06/23 23:52 Dose: 119 ml Documented By: MASON Medical Decision Making Medical Records Attestation: I reviewed the patient's medical records. Home Medications Current Medication List: was personally reviewed by me Laboratory Data Attestation: I reviewed the patient's lab results. 12/06/23 21:43 12/06/23 21:43 Lab Results 12/06/23 12/06/23 12/06/23 Range/Units 21:43 21:50 23:16 WBC 5.29 (4.8-10.8) K/ul RBC 4.46 L (4.70-6.10) M/uL Hgb 13.2 L (14.0-18.0) g/dl Hct 39.7 L (42.0-52.0) % MCV 89.0 (80.0-100.0) fL MCH 29.6 (25.0-34.0) pg MCHC 33.2 (32.0-36.0) g/dL RDW Std Deviation 44.8 (36.4-46.3) fL RDW Coeff of Pramod 13.7 (11.5-14.5) % Plt Count 192 (130-400) K/uL MPV 9.5 (9.4-12.4) fL ESR 22 H (0-20) mm/hr PT 10.9 (9.0-12.0) Seconds INR 1.0 (0.9-1.1) APTT 25 (21-31) Seconds PTT Ratio 0.9 Sodium 133 L (136-145) mmol/L Potassium 4.4 (3.5-5.1) mmol/L Chloride 100 (98-107) mmol/L Carbon Dioxide 25 (21-32) mmol/L Anion Gap 8 (3-11) BUN 18 (6-23) mg/dl Creatinine 1.74 H (0.6-1.4) mg/dl Est Cr Clr Drug Dosing Not Reportable Est GFR ( Amer) 45.0 ml/min Est GFR (Non-Af Amer) 38.9 ml/min BUN/Creatinine Ratio 10.3 (10-20) Glucose 119 H (70-99(Fasting)) mg/dl Lactate 1.4 (0.4-2.0) mmol/L Calcium 9.0 (8.6-10.3) mg/dl Total Bilirubin 0.6 (0.2-1.0) mg/dl AST 31 (13-39) U/L ALT 32 (7-52) U/L Alkaline Phosphatase 98 (34-104) U/L Troponin I High Sens 4.2 (0-20) pg/ml C-Reactive Protein 1.71 H (0-0.5) mg/dl Total Protein 7.0 (6.0-8.3) gm/dl Albumin 4.0 (3.4-5.0) gm/dl Globulin 3.0 (2.5-4.0) gm/dl Albumin/Globulin Ratio 1.3 (0.9-2) Procalcitonin (0-0.5) ng/ml Urine Color Urine Appearance (Clear) Urine pH (4.5-7.5) Ur Specific [place] (1.000-1.030) Urine Protein (Negative) Urine Glucose (UA) (Negative) Urine Ketones (Negative) Urine Blood (Negative) Urine Nitrite (Negative) Urine Bilirubin (Negative) Urine Urobilinogen (Negative) Ur Leukocyte Esterase (Negative) Urine WBC (Auto) (0-5) /hpf Urine RBC (Auto) (0-2) /hpf U Hyaline Cast (Auto) (0-2) /lpf U Epithel Cells (Auto) (0-2) /hpf Urine Bacteria (Auto) (None Seen) Urine Sperm (None Prsent) POC Stool Occult Blood (Negative) Adenovirus (PCR) Not Detected (NotDetected) B. pertussis DNA (PCR) Not Detected (NotDetected) B.parapertussis DNA PCR Not Detected (NotDetected) C. pneumoniae DNA (PCR) Not Detected (NotDetected) Coronavirus OC43 (PCR) Not Detected (NotDetected) Coronavirus HKU1 (PCR) Not Detected (NotDetected) Coronavirus 229E (PCR) Not Detected (NotDetected) SARS-CoV-2 (PCR) Not Detected (NotDetected) Coronavirus NL63 (PCR) Not Detected (NotDetected) Human Metapneumovir PCR Not Detected (NotDetected) Influenza Type A (PCR) Not Detected (NotDetected) Influenza Type B (PCR) Not Detected (NotDetected) M. pneumoniae (PCR) Not Detected (NotDetected) Parainfluenza 1 (PCR) Not Detected (NotDetected) Parainfluenza 2 (PCR) Not Detected (NotDetected) Parainfluenza 3 (PCR) Not Detected (NotDetected) Parainfluenza 4 (PCR) Not Detected (NotDetected) RSV (PCR) Not Detected (NotDetected) Entero/Rhino (PCR) Not Detected (NotDetected) Blood Type A Positive Antibody Screen NEGATIVE 12/07/23 12/07/23 12/07/23 Range/Units 00:00 00:40 Unknown WBC (4.8-10.8) K/ul RBC (4.70-6.10) M/uL Hgb (14.0-18.0) g/dl Hct (42.0-52.0) % MCV (80.0-100.0) fL MCH (25.0-34.0) pg MCHC (32.0-36.0) g/dL RDW Std Deviation (36.4-46.3) fL RDW Coeff of Pramod (11.5-14.5) % Plt Count (130-400) K/uL MPV (9.4-12.4) fL ESR (0-20) mm/hr PT (9.0-12.0) Seconds INR (0.9-1.1) APTT (21-31) Seconds PTT Ratio Sodium (136-145) mmol/L Potassium (3.5-5.1) mmol/L Chloride (98-107) mmol/L Carbon Dioxide (21-32) mmol/L Anion Gap (3-11) BUN (6-23) mg/dl Creatinine (0.6-1.4) mg/dl Est Cr Clr Drug Dosing Est GFR ( Amer) ml/min Est GFR (Non-Af Amer) ml/min BUN/Creatinine Ratio (10-20) Glucose (70-99(Fasting)) mg/dl Lactate (0.4-2.0) mmol/L Calcium (8.6-10.3) mg/dl Total Bilirubin (0.2-1.0) mg/dl AST (13-39) U/L ALT (7-52) U/L Alkaline Phosphatase (34-104) U/L Troponin I High Sens (0-20) pg/ml C-Reactive Protein (0-0.5) mg/dl Total Protein (6.0-8.3) gm/dl Albumin (3.4-5.0) gm/dl Globulin (2.5-4.0) gm/dl Albumin/Globulin Ratio (0.9-2) Procalcitonin 0.15 (0-0.5) ng/ml Urine Color Yellow Urine Appearance Clear (Clear) Urine pH 6.5 (4.5-7.5) Ur Specific [place] > 1.045 H (1.000-1.030) Urine Protein Trace H (Negative) Urine Glucose (UA) Negative (Negative) Urine Ketones Negative (Negative) Urine Blood Negative (Negative) Urine Nitrite Negative (Negative) Urine Bilirubin Negative (Negative) Urine Urobilinogen Negative (Negative) Ur Leukocyte Esterase Negative (Negative) Urine WBC (Auto) 0-5 (0-5) /hpf Urine RBC (Auto) 0-2 (0-2) /hpf U Hyaline Cast (Auto) 0-2 (0-2) /lpf U Epithel Cells (Auto) 0-2 (0-2) /hpf Urine Bacteria (Auto) None Seen (None Seen) Urine Sperm Present A (None Prsent) POC Stool Occult Blood Positive A (Negative) Adenovirus (PCR) (NotDetected) B. pertussis DNA (PCR) (NotDetected) B.parapertussis DNA PCR (NotDetected) C. pneumoniae DNA (PCR) (NotDetected) Coronavirus OC43 (PCR) (NotDetected) Coronavirus HKU1 (PCR) (NotDetected) Coronavirus 229E (PCR) (NotDetected) SARS-CoV-2 (PCR) (NotDetected) Coronavirus NL63 (PCR) (NotDetected) Human Metapneumovir PCR (NotDetected) Influenza Type A (PCR) (NotDetected) Influenza Type B (PCR) (NotDetected) M. pneumoniae (PCR) (NotDetected) Parainfluenza 1 (PCR) (NotDetected) Parainfluenza 2 (PCR) (NotDetected) Parainfluenza 3 (PCR) (NotDetected) Parainfluenza 4 (PCR) (NotDetected) RSV (PCR) (NotDetected) Entero/Rhino (PCR) (NotDetected) Blood Type Antibody Screen Imaging Data Attestation: I personally reviewed and interpreted this imaging study as follows: Radiologist's Impression: Chest CTA 12/06/23 23:15 Exam(s): CTA CHEST IV Amt: 119 ML OPTIRAY 320 EXAM: CT Angiography Chest With Intravenous Contrast CLINICAL HISTORY: Reason for exam: PE, recent OR. TECHNIQUE: Axial computed tomographic angiography images of the chest with intravenous contrast. CTDI is 73.53 mGy and DLP is 2158.09 mGy-cm. Automated exposure control was utilized for the study. A dose lowering technique was utilized adhering to the principles of ALARA. MIP reconstructed images were created and reviewed. COMPARISON: No relevant prior studies available. FINDINGS: LUNGS: No focal consolidation, pleural effusion, or pneumothorax. Atelectasis at the lung bases. HEART: Cardiomegaly. VASCULATURE: No acute pulmonary embolism. Atherosclerotic changes of the aorta. THYROID: Within normal limits. MEDIASTINUM + LYMPH NODES: There are no pathologically enlarged mediastinal, hilar, or axillary lymph nodes. SUPERIOR ABDOMEN: Hepatic steatosis. MUSCULOSKELETAL: Degenerative changes. IMPRESSION: No acute pulmonary embolism. Electronically signed by: Roberto Carlos Rivera MD 12/07/23 01:39 AM Abdomen/Pelvis CT 12/06/23 23:18 Exam(s): CT ABDOMEN + PELVIS With Contrast IV Amt: 119 ML OPTIRAY 320 EXAM: CT Abdomen and Pelvis With Intravenous Contrast CLINICAL HISTORY: Reason for exam: sepsis. TECHNIQUE: Axial computed tomography images of the abdomen and pelvis with intravenous contrast. CTDI is 73.53 mGy and DLP is 2158.09 mGy-cm. Automated exposure control was utilized for the study. A dose lowering technique was utilized adhering to the principles of ALARA. CONTRAST: Patient received 119 ML OPTIRAY 320 of IV contrast COMPARISON: No relevant prior studies available. FINDINGS: Lung bases: Unremarkable. No mass. No consolidation. Mediastinum: Small hiatal hernia. ABDOMEN: Liver: Hepatic steatosis. Gallbladder and bile ducts: Unremarkable. No calcified stones. No ductal dilation. Pancreas: Unremarkable. No mass. No ductal dilation. Spleen: Unremarkable. No splenomegaly. Adrenals: Unremarkable. No mass. Kidneys and ureters: Unremarkable. No solid mass. No hydronephrosis. Stomach and bowel: Unremarkable. No obstruction. No mucosal thickening. PELVIS: Appendix: No findings to suggest acute appendicitis. Bladder: Unremarkable. No mass. Reproductive: Unremarkable as visualized. ABDOMEN and PELVIS: Intraperitoneal space: Unremarkable. No free air. No significant fluid collection. Bones/joints: Degenerative changes of the spine. Posterior fusion L5- S1. No acute fracture. No dislocation. Soft tissues: Unremarkable. Vasculature: Atherosclerotic changes of the aorta. No abdominal aortic aneurysm. Lymph nodes: Unremarkable. No enlarged lymph nodes. IMPRESSION: No acute findings in the abdomen or pelvis. Electronically signed by: Roberto Carlos Rivera MD 12/07/23 01:44 AM MDM Narrative Prior records/ancillary studies reviewed. Triage Nursing notes reviewed. Additional history obtained from family. The patient's history was concerning for fever. Differential diagnosis: Etiologies such as viral syndrome, postsurgical infection, otitis, pharyngitis, pneumonia, influenza, meningitis, urinary tract infection, sepsis, bacteremia, as well as others were entertained. Physical examination: As above ER treatment provided: An order was placed for continuous cardiac monitoring. The monitor shows a rate of 60-100 with a sinus rhythm per my interpretation. Rocephin, daptomycin, IV fluids, Tylenol On reassessment the patient felt better. Diagnostics interpreted by me: ECG: Ordered for weakness EKG: Normal sinus, normal intervals, no acute ST-T wave changes. Impression normal sinus rhythm independent interpreted by myself The labs Independently Interpreted by myself revealed no worrisome leukocytosis, minimally elevated inflammatory markers. Negative BioFire. Blood cultures pending Imaging studies: Chest x-ray with no acute consolidation, pneumothorax or free air per my independent interpretation Knee x-ray with no fracture, malalignment or dislocation per my independent interpretation CTs as above Consultation: A consultation was placed with orthopedics, Dr. Valencia. The case was discussed and diagnostics were reviewed. He does not believe the knee is infected and recommends continuation of antibiotics and discharge with outpatient follow-up. Medicine was consulted and case discussed. Patient be evaluated medicine for possible admission. This appears to be consistent with fever with unclear etiology. Patient is 10 days out from knee replacement. He had a fever for the past few days. His symptoms have been getting worse. His knee is somewhat warm compared to his other knee but no overt signs of infection. X-ray shows no pneumonia. Urine is not infected. BioFire is negative. Blood cultures pending. Medicine is consulted and case discussed. Patient be admitted to the medical service. By the evaluation outlined above emergent etiologies such as otitis, pharyngitis, pneumonia, meningitis, urinary tract infection, sepsis, bacteremia, as well as others were deemed relatively unlikely. The pt informed about the findings as listed above. All questions were answered and pleased with the treatment. The chart was completed utilizing [employer] Speech voice recognition software. Grammatical errors, random word insertions, pronoun errors, and incomplete sentences are an occassional consequence of this system due to software limitations, ambient noise, and hardware issues. Any formal questions or concerns about the content, text, or information contained within the body of this dictation should be directly addressed to the physician production assistant for clarification. Impression & Plan Fever, Hematochezia Discharge Plan Visit Data Chief Complaint: Rectal Bleed Stated Complaint: KNEE SURGERY 10 DAYS AGO,BLOOD IN STOOL,BLOODCLOTS ED Provider: Casper Becerra ED Midlevel Provider: Alaina Dash Discharge Problem: Fever, Hematochezia Patient Disposition: Admitted As Inpatient Condition: Good Forms Stand Alone Forms: [facility] [place] [employer] Prescriptions Prescriptions: No Action sulfamethoxazole-trimethoprim [Bactrim DS] 800-160 mg tablet 1 tab PO BID 7 Days Qty: 14 0RF Rx Instructions: STARTED 12/01/23 FOR 7 DAYS levothyroxine 175 mcg tablet 175 mcg PO DAILYBB cyanocobalamin (vitamin B-12) [Vitamin B-12] 1,000 mcg Tablet 1,000 mcg PO DAILY docusate sodium 100 mg Capsule 100 mg PO BID magnesium 250 mg Tablet 250 mg PO DAILY cholecalciferol (vitamin D3) [Vitamin D3] 25 mcg (1,000 unit) Capsule 25 mcg PO DAILY potassium citrate 99 mg Capsule 99 mg PO DAILY isosorbide mononitrate 30 mg tablet extended release 24 hr 30 mg PO QAM doxepin 75 mg capsule 75 mg PO HS clopidogrel 75 mg tablet 75 mg PO QAM nadolol 20 mg tablet 20 mg PO QAM celecoxib 100 mg capsule 100 mg PO HS rosuvastatin 40 mg tablet 40 mg PO QAM oxycodone 5 mg Tablet 5 mg PO Q4H PRN (Reason: pain) Qty: 30 0RF aspirin 81 mg Capsule 81 mg PO BID 42 Days Qty: 0 0RF Referrals Referrals: [place], JUAN MANUEL [Primary Care Provider] - Discharge Problem: Fever Qualifiers: Fever type: unspecified Qualified Code(s): R50.9 - Fever, unspecified
[2023-12-06] MEDS: OPTIRAY 320 125ml IV ONE (23:52)
[2023-12-06] MEDS: cefTRIAXone SODIUM 2,000 MG/50 ML BAG IV STA (23:56)
[2023-12-06] MEDS: SODIUM CHLORIDE 0.9% 1,000 ML IV ONE (23:56)
[2023-12-06] MEDS: DAPTOmycin 500 MG in SYRINGE 0 ML IV STA (23:57)
[2023-12-06 23:59] LABS: C Reactive Protein 1.71 mg/dl (0-0.5)
[2023-12-07] MEDS: ACETAMINOPHEN 1,000 MG/100 ML VIAL IV STA (00:46)
[2023-12-07 00:57] LABS: Adenovirus PCR Not Detected (NotDetected); Bordetella parapertussis PCR Not Detected (NotDetected); Bordetella pertussis PCR Not Detected (NotDetected); Chlamydia pneumoniae PCR Not Detected (NotDetected); Coronavirus 229E PCR Not Detected (NotDetected); Coronavirus CoV-2 (COVID19)PCR Not Detected (NotDetected); Coronavirus HKU1 PCR Not Detected (NotDetected); Coronavirus NL63 PCR Not Detected (NotDetected); Coronavirus OC43PCR Not Detected (NotDetected); Human Metapneumovirus PCR Not Detected (NotDetected); Influenza A PCR Not Detected (NotDetected); Influenza B PCR Not Detected (NotDetected); Mycoplasma pneumoniae PCR Not Detected (NotDetected); Parainfluenza Virus 1 PCR Not Detected (NotDetected); Parainfluenza Virus 2 PCR Not Detected (NotDetected); Parainfluenza Virus 3 PCR Not Detected (NotDetected); Parainfluenza Virus 4 PCR Not Detected (NotDetected); Respiratory Syncytial VirusPCR Not Detected (NotDetected); Rhinovirus/Enterovirus PCR Not Detected (NotDetected)
[2023-12-07 01:26] LABS: Appearance Urine Clear (Clear); Bacteria Urine Automated None Seen (None Seen); Bilirubin Urine Negative (Negative); Blood Urine Negative (Negative); Cast Urine Automated 0-2 /lpf (0-2); Color Urine Yellow; Epithelial Cell Urine Auto 0-2 /hpf (0-2); Glucose Urine UA Negative (Negative); Ketones Urine Negative (Negative); Leukocyte Esterase Urine Negative (Negative); Nitrite Urine Negative (Negative); Protein Urine Trace (Negative); RBC Urine Automated 0-2 /hpf (0-2); Specific Gravity Urine > 1.045 (1.000-1.030); Sperm Urine Present (None Prsent); Urobilinogen Urine Negative (Negative); WBC Urine Automated 0-5 /hpf (0-5); pH Urine 6.5 (4.5-7.5)
--- NOTE | 2023-12-07 01:40 | CT Scan Report ---
Exam(s): CTA CHEST IV Amt: 119 ML OPTIRAY 320 EXAM: CT Angiography Chest With Intravenous Contrast CLINICAL HISTORY: Reason for exam: PE, recent OR. TECHNIQUE: Axial computed tomographic angiography images of the chest with intravenous contrast. CTDI is 73.53 mGy and DLP is 2158.09 mGy-cm. Automated exposure control was utilized for the study. A dose lowering technique was utilized adhering to the principles of ALARA. MIP reconstructed images were created and reviewed. COMPARISON: No relevant prior studies available. FINDINGS: LUNGS: No focal consolidation, pleural effusion, or pneumothorax. Atelectasis at the lung bases. HEART: Cardiomegaly. VASCULATURE: No acute pulmonary embolism. Atherosclerotic changes of the aorta. THYROID: Within normal limits. MEDIASTINUM + LYMPH NODES: There are no pathologically enlarged mediastinal, hilar, or axillary lymph nodes. SUPERIOR ABDOMEN: Hepatic steatosis. MUSCULOSKELETAL: Degenerative changes. IMPRESSION: No acute pulmonary embolism. Electronically signed by: Roberto Carlos Rivera MD 12/07/23 01:39 AM
--- NOTE | 2023-12-07 01:45 | CT Scan Report ---
Exam(s): CT ABDOMEN + PELVIS With Contrast IV Amt: 119 ML OPTIRAY 320 EXAM: CT Abdomen and Pelvis With Intravenous Contrast CLINICAL HISTORY: Reason for exam: sepsis. TECHNIQUE: Axial computed tomography images of the abdomen and pelvis with intravenous contrast. CTDI is 73.53 mGy and DLP is 2158.09 mGy-cm. Automated exposure control was utilized for the study. A dose lowering technique was utilized adhering to the principles of ALARA. CONTRAST: Patient received 119 ML OPTIRAY 320 of IV contrast COMPARISON: No relevant prior studies available. FINDINGS: Lung bases: Unremarkable. No mass. No consolidation. Mediastinum: Small hiatal hernia. ABDOMEN: Liver: Hepatic steatosis. Gallbladder and bile ducts: Unremarkable. No calcified stones. No ductal dilation. Pancreas: Unremarkable. No mass. No ductal dilation. Spleen: Unremarkable. No splenomegaly. Adrenals: Unremarkable. No mass. Kidneys and ureters: Unremarkable. No solid mass. No hydronephrosis. Stomach and bowel: Unremarkable. No obstruction. No mucosal thickening. PELVIS: Appendix: No findings to suggest acute appendicitis. Bladder: Unremarkable. No mass. Reproductive: Unremarkable as visualized. ABDOMEN and PELVIS: Intraperitoneal space: Unremarkable. No free air. No significant fluid collection. Bones/joints: Degenerative changes of the spine. Posterior fusion L5- S1. No acute fracture. No dislocation. Soft tissues: Unremarkable. Vasculature: Atherosclerotic changes of the aorta. No abdominal aortic aneurysm. Lymph nodes: Unremarkable. No enlarged lymph nodes. IMPRESSION: No acute findings in the abdomen or pelvis. Electronically signed by: Roberto Carlos Rivera MD 12/07/23 01:44 AM
--- NOTE | 2023-12-07 02:29 | History & Physical Report ---
Date of Service December 07, 2023 Assessment & Plan (1) Fever: Plan: Patient presents with fever- hemodynamically stable and without SIRS criteria, or leukocytosis - NO acute findings on CXR and/or CT abdomen/pelvis - Knee appears to be healing well with no obvious sign of infection noted- consider ortho consultation for eval - Await blood and urine culture - PCT pending - Will place on empiric antibiotics at this time with Rocephin and Daptomycin - Further work up as clinical picture becomes more clear- for now continue with ultrasounds of legs- eval for DVT as possible cause (2) Hematochezia: Plan: Patient reports passage of blood clots with stools with straining - he states it has been a while since last colonoscopy - He is without lower quad abdominal pain and no pathology commented on on CT abdomen and pelvis - abdomen is not tender - Hemorrhoids vs ? Diverticular bleed- HGB levels stable - Hold ASA and PLAVIX at this time- RESTART at earliest opportunity once hemodynamics and HGB proven stable (3) THOMAS (acute kidney injury): Plan: Likely secondary to bactrim and mild dehydration as evidence by SG 1.045 - Provide 1liter of LR and then encourage PO intake - trend daily BMP (4) Status post left knee replacement: Plan: As per HPI- appears to be healing well- was discharged on prophylactic antibiotics- Bactrim likely contributing to THOMAS - Hold Bactrim abx as above (5) CAD (coronary artery disease): Plan: History of - with stents to LAD proximal and mid. With residucal non-occlusive RCA disease - Continue medical management with statin, ISMN - As above restart asa at earliest opportunity (6) Hypothyroidism: Plan: Continue synthroid (7) Sleep apnea: Plan: CPAP with autopap as patient is unsure of his settings - to bring in home CPAP at earliest convienence (8) DVT prophylaxis: Plan: TEDS- ambulation - restart asa/Plavix at earliest opportunity as above History of Present Illness Primary Care Provider: JUAN MANUEL Fox 68 YOM with medical history of: Arthritis, GERD, HTN, Hx MRSA infection , HLD, CAD with stents (2021), MARJAN, Hypothyroidism, Obesity. Patient presents to the EMD today for complaints of fever, chills, feeling weak, and passing of blood clots in stool. Patient states that this has been going on for the past two days or so. He reports no sinus congestion, cough, abdominal pain, or urinary discomfort. He is however s/p 10 days of LEFT TKA performed here by Dr. Mays. He reports that he is on ASA and Plavix for DVT prophy post surgery as well as taking another asa at night. He also reports that he is placed on Bactrim by orthopaedics secondary to hx of "being susceptible to MRSA infection". He was placed on Cefadroxil on discharge and now on Bactrim per his report. He reports that he struggles with constipation and diarrhea at home and has noted passage of blood clots in his stools over the past few days as well. In the EMD the patient had routine labs performed, he was noted to febrile to 38.9, had blood cultures drawn, CT of abdomen and pelvis performed, CXR, and Knee Xray. His labs are without leukocytosis. He is noted with elevated ESR and CRP- will add procalcitonin on as well. His HGB levels are stable as well. CT abdomen and pelvis without acute source noted, he is with normal lipase as well as LFTS. Respiratory biofire is negative. He is pending ultrasound of his legs to eval for DVT. Left knee appears to be healing well without erythema or drainage and stalples are well approximated. Overall fever with no clear source of infection at this time. Await blood cultures, urine culture. Will place on empiric antibiotics in form of Rocephin and Daptomycin. Follow clinical course. For his report of bloody stools, will hold his ASA and Plavix for now, with likely grant of restarting these soon if we can trend out his bowel movements as well as trend HGB levels in am. CODE: FULL Allergies Allergy/AdvReac Type Severity Reaction Status Date / Time vancomycin Allergy Intermediate Red Man's Verified 12/07/23 00:48 Disease Home Medications Medication Instructions Recorded Confirmed Type celecoxib 100 mg capsule 100 mg PO HS 10/27/23 12/07/23 History clopidogrel 75 mg tablet 75 mg PO QAM 10/27/23 12/07/23 History doxepin 75 mg capsule 75 mg PO HS 10/27/23 12/07/23 History isosorbide mononitrate 30 mg 30 mg PO QAM 10/27/23 12/07/23 History tablet,extended release 24 hr nadolol 20 mg tablet 20 mg PO QAM 10/27/23 12/07/23 History rosuvastatin 40 mg tablet 40 mg PO QAM 10/27/23 12/07/23 History aspirin 81 mg capsule 81 mg PO BID 42 days #0 caps 11/27/23 12/07/23 Rx oxycodone 5 mg tablet 5 mg PO Q4H PRN pain #30 tabs 11/27/23 12/07/23 Rx sulfamethoxazole 800 1 tab PO BID 7 days #14 tabs 12/01/23 12/07/23 Rx mg-trimethoprim 160 mg tablet (Bactrim DS) cholecalciferol (vitamin D3) 25 25 mcg PO DAILY 12/07/23 12/07/23 History mcg (1,000 unit) capsule (Vitamin D3) cyanocobalamin (vitamin B-12) 1,000 mcg PO DAILY 12/07/23 12/07/23 History 1,000 mcg tablet (Vitamin B-12) docusate sodium 100 mg capsule 100 mg PO BID 12/07/23 12/07/23 History levothyroxine 175 mcg tablet 175 mcg PO DAILYBB 12/07/23 12/07/23 History magnesium 250 mg tablet 250 mg PO DAILY 12/07/23 12/07/23 History potassium citrate 99 mg capsule 99 mg PO DAILY 12/07/23 12/07/23 History Past Med/Surg History Problem List (Updated 12/07/23 @ 02:58 by JUAN MANUEL Aaron) DVT prophylaxis THOMAS (acute kidney injury) Hematochezia (Acute) Fever (Acute) Status post left knee replacement (~11/2023) Osteoarthritis of left knee Medical History (Updated 12/07/23 @ 02:58 by JUAN MANUEL Aaron) Cardiac murmur ECHO 04/2022 showed no significant valvular disease CAD (coronary artery disease) s/p 3 cardiac stents (proximal to mid LAD and first diagonal )04/2022 Hx MRSA infection 2001, right shoulder, dx [facility]>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 martin, [facility] History of cardiac cath 04/2022, chest pressure, taken to [facility] in [place], x3 stents; f/u dr. martin, [facility] Social History Smoking Status: Former smoker Tobacco Type: Cigarettes Second Hand Exposure: Yes (hx-none in last 25 years); Do You Dip or Chew Tobacco: No; Hx Alcohol Use: Yes Alcohol type: wine Hx Substance Use: No Preferred Language: Swiss Communication Ability: Effective Oil Boiler Required: No Beliefs That Will Affect Care: None Current Living Situation: Alone and Spouse Other Information That Helps Us Care for You: No Feels Safe at Home: Yes Safety Concerns: Feels Safe At This Time Assistive Devices: Cane and CPAP Review of Systems Review of Systems: REVIEW OF SYSTEMS: Constitutional: (+) fever, sweats or chills Eyes: No diplopia, no worsening or blurred vision ENT: normal hearing, no trouble swallowing Respiratory: No cough, sputum, dyspnea at rest or on exertion Cardiovascular: No chest pain, tightness or palpitations Abdomen: (+) clots iin stool, diarrhea and constipation, No pain, nausea, vomiting, Musculoskeletal: (+) left knee healing surgical incision. No joint pain, calf pain, swelling Neurologic: No weakness, numbness/tingling, or balance problems Psychiatric: No anxiety or depression Skin: No rash or itch Physical Exam Physical Exam: PHYSICAL EXAM: General: awake, alert, no apparent distress Head: Normocephalic, atraumatic ENT: PERRL, EOMI, no pharyngeal exudate, mucous membranes moist Neuro: AAO x 3, speech clear and appropriate, strength intact bilaterally 5/5, sensation intact and equal all extremities and dermatomes, no pronator drift Chest: equal rise and fall of the chest, no accessory muscle use, no heaves or thrills, Clear to auscultation, on room air, Cardiac: Regular rate and rhythm, telemetry reviewed- NSR, skin warm dry, cap refill <3 seconds, peripheral pulses +2 no JVD, no murmur, no edema GI: NABS x 4 quadrants, soft, nontender to palpation, no rebound, guarding or tenderness : Spontaneously voiding, no pain, no CVA tenderness, Psych: Normal mood and affect Skin: left knee with incision intact with salo, no drainage, no erythema, surrounding ecchymosis noted, Results & Data Results & Data Vital Signs (Past 12 Hours) Vital Signs Temp Pulse Pulse Resp BP BP Pulse Ox 12/07/23 02:22 80 12/07/23 00:43 38.9 C H 92 H 18 116/73 98 12/06/23 23:00 86 18 98 12/06/23 23:00 87 18 156/86 H 98 12/06/23 22:22 95 H 12/06/23 21:17 38.1 C H 95 H 18 147/77 H 96 O2 Del Method 12/07/23 02:22 12/07/23 00:43 Room Air 12/06/23 23:00 Room Air 12/06/23 23:00 Room Air 12/06/23 22:22 12/06/23 21:17 Room Air Laboratory Results Abnormal lab results 12/06/23 12/07/23 12/07/23 Range/Units 21:43 00:00 00:40 RBC 4.46 L (4.70-6.10) M/uL Hgb 13.2 L (14.0-18.0) g/dl Hct 39.7 L (42.0-52.0) % ESR 22 H (0-20) mm/hr Sodium 133 L (136-145) mmol/L Creatinine 1.74 H (0.6-1.4) mg/dl Glucose 119 H (70-99(Fasting)) mg/dl C-Reactive Protein 1.71 H (0-0.5) mg/dl Ur Specific [place] > 1.045 H (1.000-1.030) Urine Protein Trace H (Negative) Urine Sperm Present A (None Prsent) POC Stool Occult Blood Positive A (Negative) Diagnostic Findings Chest CTA 12/06/23 23:15 Exam(s): CTA CHEST IV Amt: 119 ML OPTIRAY 320 EXAM: CT Angiography Chest With Intravenous Contrast CLINICAL HISTORY: Reason for exam: PE, recent OR. TECHNIQUE: Axial computed tomographic angiography images of the chest with intravenous contrast. CTDI is 73.53 mGy and DLP is 2158.09 mGy-cm. Automated exposure control was utilized for the study. A dose lowering technique was utilized adhering to the principles of ALARA. MIP reconstructed images were created and reviewed. COMPARISON: No relevant prior studies available. FINDINGS: LUNGS: No focal consolidation, pleural effusion, or pneumothorax. Atelectasis at the lung bases. HEART: Cardiomegaly. VASCULATURE: No acute pulmonary embolism. Atherosclerotic changes of the aorta. THYROID: Within normal limits. MEDIASTINUM + LYMPH NODES: There are no pathologically enlarged mediastinal, hilar, or axillary lymph nodes. SUPERIOR ABDOMEN: Hepatic steatosis. MUSCULOSKELETAL: Degenerative changes. IMPRESSION: No acute pulmonary embolism. Electronically signed by: Roberto Carlos Rivera MD 12/07/23 01:39 AM Abdomen/Pelvis CT 12/06/23 23:18 Exam(s): CT ABDOMEN + PELVIS With Contrast IV Amt: 119 ML OPTIRAY 320 EXAM: CT Abdomen and Pelvis With Intravenous Contrast CLINICAL HISTORY: Reason for exam: sepsis. TECHNIQUE: Axial computed tomography images of the abdomen and pelvis with intravenous contrast. CTDI is 73.53 mGy and DLP is 2158.09 mGy-cm. Automated exposure control was utilized for the study. A dose lowering technique was utilized adhering to the principles of ALARA. CONTRAST: Patient received 119 ML OPTIRAY 320 of IV contrast COMPARISON: No relevant prior studies available. FINDINGS: Lung bases: Unremarkable. No mass. No consolidation. Mediastinum: Small hiatal hernia. ABDOMEN: Liver: Hepatic steatosis. Gallbladder and bile ducts: Unremarkable. No calcified stones. No ductal dilation. Pancreas: Unremarkable. No mass. No ductal dilation. Spleen: Unremarkable. No splenomegaly. Adrenals: Unremarkable. No mass. Kidneys and ureters: Unremarkable. No solid mass. No hydronephrosis. Stomach and bowel: Unremarkable. No obstruction. No mucosal thickening. PELVIS: Appendix: No findings to suggest acute appendicitis. Bladder: Unremarkable. No mass. Reproductive: Unremarkable as visualized. ABDOMEN and PELVIS: Intraperitoneal space: Unremarkable. No free air. No significant fluid collection. Bones/joints: Degenerative changes of the spine. Posterior fusion L5- S1. No acute fracture. No dislocation. Soft tissues: Unremarkable. Vasculature: Atherosclerotic changes of the aorta. No abdominal aortic aneurysm. Lymph nodes: Unremarkable. No enlarged lymph nodes. IMPRESSION: No acute findings in the abdomen or pelvis. Electronically signed by: Roberto Carlos Rivera MD 12/07/23 01:44 AM Medications Administered Discontinued Medications Sodium Chloride (Nss) 1,000 mls @ 999 mls/hr IV .Q1H1M ONE Stop: 12/07/23 00:15 Last Infusion: 12/07/23 01:21 Dose: Infused Documented By: Admin: 12/06/23 23:56 Dose: 999 mls/hr Documented By: BRITTANY Ceftriaxone Sodium (Rocephin) 2,000 mg in 50 mls @ 100 mls/hr IV NOW STA Stop: 12/06/23 23:44 Last Infusion: 12/07/23 00:35 Dose: Infused Documented By: Admin: 12/06/23 23:56 Dose: 100 mls/hr Documented By: BRITTANY Daptomycin 500 mg/ Syringe 10 mls @ 5 mls/min IV NOW STA; Protocol Stop: 12/06/23 23:16 Last Admin: 12/06/23 23:57 Dose: 5 mls/min Documented By: BRITTANY Acetaminophen (Ofirmev) 1,000 mg in 100 mls @ 400 mls/hr IV NOW STA Stop: 12/07/23 00:14 Last Infusion: 12/07/23 01:21 Dose: Infused Documented By: Admin: 12/07/23 00:46 Dose: 400 mls/hr Documented By: CLAYTON Ioversol (Optiray 320 125ml) 125 ml IV ONCE ONE Stop: 12/06/23 23:53 Last Admin: 12/06/23 23:52 Dose: 119 ml Documented By: MASON ECG Additional Comments: Normal sinus rhythm Normal ECG When compared with ECG of 27-OCT-2023 12:52, Vent. rate has increased BY 35 BPM Code Status & VTE Plan VTE Prophylaxis Plan VTE Prophylaxis will be ordered: Yes Supervising Physician Co-Signing Physician Notes Attending addendum: I have physically seen this patient, have supervised the ELEAZAR's activities, and agree with the H&P unless as otherwise noted. Assessment and Plan: Fever- Follow urine culture and sensitivities Follow-up blood culture sensitivities Recent TKA, without signs of infection Empiric daptomycin and ceftriaxone Hematochezia- Differential including hemorrhoidal bleeding versus diverticular bleed Hemoglobin 13.2 on admission, follow serially Hold aspirin and clopidogrel Acute kidney injury- Creatinine 1.74 admission, with base 0.87 May have been caused by postop Bactrim prophylaxis, which will be held Status post 1 L normal saline bolus in the ED Repeat laboratories in a.m. Status post left TKA- No suggestion of wound infection Continue with PT/OT PG Care Time/CCT Total # of Minutes Spent Total Time Spent with Patient: Total time spent is greater than 50% in coordination of care (as documented) at patient's floor/unit and/or counseling patient: Coding Level of Care Code 86790 INT INP/OBS CARE 2/55MIN Diagnoses Fever R50.9 Fever type: unspecified Hematochezia K92.1 THOMAS (acute kidney injury) N17.9 Status post left knee replacement Z96.652 CAD (coronary artery disease) I25.10 Hypothyroidism E03.9 Sleep apnea G47.30 DVT prophylaxis Z29.9 (1) Fever Fever type: unspecified Qualified Code(s): R50.9 - Fever, unspecified
[2023-12-07] MEDS ORDERED: ALUMINUM/MAGNESIUM SUSP 30 ML UDC PO PRN (04:52)
[2023-12-07] MEDS ORDERED: oxyCODONE HCL IR 5 MG TAB (IMMEDIATE RELEASE) PO PRN (04:52)
[2023-12-07] MEDS: LACTATED RINGER'S 1,000 ML IV ONE (05:30)
--- NOTE | 2023-12-07 06:52 | XRay Report ---
XR knee LT 3V HISTORY: 68 years-old Male fever, recent knee replacement acute left knee pain COMPARISON: 11/26/2023 TECHNIQUE: 3 views of the left knee FINDINGS: Total arthroplasty with patellar resurfacing and anterior midline skin salo. Small moderate joint effusion with circumferential soft tissue swelling. No acute fracture, dislocation or osseous erosion . IMPRESSION: 1. Total joint arthroplasty and patellar resurfacing with anterior midline skin salo. 2. Circumferential soft tissue swelling with joint effusion. 3. No acute osseous abnormality. ACT 112: Negative or not required by law. The above report was generated using voice recognition software. It may contain grammatical, syntax o r spelling errors. Electronically signed by: Neeraj Rowe M.D. 12/07/2023 6:50 AM
--- NOTE | 2023-12-07 06:53 | XRay Report ---
SINGLE VIEW CHEST CLINICAL HISTORY: Sepsis. FINDINGS: An AP, portable, upright chest radiograph is compared to study dated 10/27/2023. The heart is enlarged noting atherosclerotic calcification of the thoracic aorta. The pulmonary vasculature is no ncongested. Chronic interstitial thickening is similar to previous. There is bibasilar scarring/atele ctasis. The lungs and pleural spaces are otherwise clear. No pneumothorax is seen. The skeletal struc tures are osteopenic. The bony thorax is grossly intact. IMPRESSION: Cardiomegaly with no active disease in the chest. ACT 112: Negative or not required by law. Electronically signed by: Brando Tavares M.D. 12/07/2023 6:52 AM
--- NOTE | 2023-12-07 07:45 | Ultrasound Report ---
ULTRASOUND LEFT LOWER EXTREMITY VENOUS CLINICAL HISTORY: Left leg pain and swelling. Recent knee surgery. COMPARISON STUDY: No priors. TECHNIQUE: Real-time, grayscale, and color Doppler sonography of the deep veins of the left lower ext remity was performed from the inguinal crease to the calf. Compression and augmentation were utilized . FINDINGS: There is no sonographic evidence of deep venous thrombosis identified in the left lower ext remity. The common femoral, superficial femoral, and popliteal veins are patent and normally compress ible. The greater saphenous vein and the profunda femoris vein at the junction with the common femora l vein are clear. The visualized calf veins are patent. IMPRESSION: There is no sonographic evidence of deep venous thrombosis identified in the left lower e xtremity. ACT 112: Negative or not required by law. Electronically signed by: Brando Tavares M.D. 12/07/2023 7:44 AM
[2023-12-07] MEDS ORDERED: NON-FORMULARY MEDICATION (Potassium Citrate 99 mg Capsule) PO SCH (09:00)
--- NOTE | 2023-12-07 09:05 | Electrocardiogram Report ---
Test Reason : Blood Pressure : / mmHG Vent. Rate : 095 BPM Atrial Rate : 095 BPM P-R Int : 184 ms QRS Dur : 088 ms QT Int : 348 ms P-R-T Axes : 045 007 031 degrees QTc Int : 437 ms Normal sinus rhythm Normal ECG When compared with ECG of 27-OCT-2023 12:52, Vent. rate has increased BY 35 BPM Confirmed by Brandon Goff ([id number]) on 12/07/2023 9:05:42 AM Referred By: REFERRED SELF Confirmed By:Flavio Goff
[2023-12-07 09:11] LABS: Hematocrit (blood only) 41.5 % (42.0-52.0); Mean Corpuscular Hemoglobin 30.6 pg (25.0-34.0); Mean Corpuscular Hgb Conc 33.7 g/dL (32.0-36.0); Mean Corpuscular Volume 90.8 fL (80.0-100.0); Mean Platelet Volume 9.6 fL (9.4-12.4); Platelet Count 196 K/uL (130-400); RDW Coefficient of Variation 14.1 % (11.5-14.5); RDW Standard Deviation 46.3 fL (36.4-46.3); Red Blood Count 4.57 M/uL (4.70-6.10)
[2023-12-07 09:44] LABS: Albumin Globulin Ratio 1.5 (0.9-2); Albumin Level 3.8 gm/dl (3.4-5.0); BUN Creatinine Ratio 11.9 (10-20); Bilirubin,Total 0.5 mg/dl (0.2-1.0); Calcium 8.6 mg/dl (8.6-10.3); Creatinine Clr Calc Pharmacy 54.7 ml/min; Est GFR (African American) 57.1 ml/min; Est GFR (Non-African American) 49.3 ml/min; Globulin 2.6 gm/dl (2.5-4.0); Potassium 4.4 mmol/L (3.5-5.1); Total Protein 6.4 gm/dl (6.0-8.3)
[2023-12-07] MEDS: DOCUSATE SODIUM 100 MG CAP PO SCH (10:49)
[2023-12-07] MEDS: CHOLECALCIFEROL 25 MCG (1000 UNITS) TAB PO SCH (10:49)
[2023-12-07] MEDS: CYANOCOBALAMIN (B-12) 500 MCG TABLET PO SCH (10:49)
[2023-12-07] MEDS: nadoloL 40 MG TAB PO SCH (10:50)
[2023-12-07] MEDS: LEVOTHYROXINE SODIUM 175 MCG TABLET PO SCH (10:50)
[2023-12-07] MEDS: ISOSORBIDE MONO EXTENDED REL 30 MG TABCR PO SCH (10:50)
[2023-12-07] MEDS: ROSUVASTATIN CALCIUM 20 MG TAB PO SCH (10:51)
[2023-12-07] MEDS: POLYETHYLENE (MIRALAX) 17 GM PACK PO SCH (10:53)
[2023-12-07] MEDS: DOCUSATE SODIUM/SENNA 50/8.6MG TAB PO SCH (11:17)
[2023-12-07 15:01] LABS: Appearance Urine Clear (Clear); Bacteria Urine Automated None Seen (None Seen); Bilirubin Urine Negative (Negative); Blood Urine Negative (Negative); Cast Urine Automated 0-2 /lpf (0-2); Color Urine Yellow; Epithelial Cell Urine Auto 0-2 /hpf (0-2); Glucose Urine UA Negative (Negative); Ketones Urine Negative (Negative); Leukocyte Esterase Urine Negative (Negative); Nitrite Urine Negative (Negative); Protein Urine 1+ (Negative); RBC Urine Automated 0-2 /hpf (0-2); Specific Gravity Urine 1.027 (1.000-1.030); Urobilinogen Urine Negative (Negative); WBC Urine Automated 0-5 /hpf (0-5); pH Urine 5.5 (4.5-7.5)
--- NOTE | 2023-12-07 18:34 | Communication Note ---
Date of Service: December 07, 2023 Patient on admission meeting SIRS criteria on daptomycin and ceftriaxone, cultures pending, reports improvement with antibiotics. On exam patient appears comfortable, non diaphoretic, conjunctiva clear, mucosa moist, non-labored breathing, lungs clear to auscultation bilaterally, no rales/rhonchi/wheezing, heart with regular rate and rhythm, no murmur appreciated, bowel sounds present and no tenderness in the abdomen, lower extremities without edema, left surgical site left knee with salo and appears c/d/i. Patient had large BM without blood today. Will restart ASA & plavix. Lyme pending. VSS.
[2023-12-07] MEDS: ASPIRIN 81 MG ECTAB PO SCH (19:47)
[2023-12-07] MEDS: DOXEPIN HCL 75 MG CAPSULE PO SCH (19:48)
[2023-12-07] MEDS: DAPTOmycin 325 MG in SYRINGE 0 ML IV SCH (19:50)
[2023-12-07] MEDS: cefTRIAXone SODIUM 2,000 MG/50 ML BAG IV SCH (21:30)
[2023-12-08] MEDS: ACETAMINOPHEN 325 MG TAB PO PRN (01:33)
[2023-12-08 06:43] LABS: Basophils # (auto) 0.02 K/uL (0.00-0.20); Basophils % (auto) 0.4 %; Eosinophils # (auto) 0.33 K/uL (0.00-0.50); Eosinophils % (auto) 7.2 %; Hematocrit (blood only) 39.2 % (42.0-52.0); Hemoglobin 13.3 g/dl (14.0-18.0); Immature Granulocytes # (auto) 0.02 K/uL (0.01-0.20); Immature Granulocytes % (auto) 0.4 %; Lymphocytes % (auto) 30.6 %; Mean Corpuscular Hemoglobin 30.4 pg (25.0-34.0); Mean Corpuscular Hgb Conc 33.9 g/dL (32.0-36.0); Mean Corpuscular Volume 89.5 fL (80.0-100.0); Mean Platelet Volume 9.7 fL (9.4-12.4); Monocytes # (auto) 0.48 K/uL (0.11-0.59); Monocytes % (auto) 10.5 %; Neutrophils # (auto) 2.32 K/uL (1.40-6.50); Neutrophils % (auto) 50.9 %; Platelet Count 174 K/uL (130-400); RDW Standard Deviation 45.7 fL (36.4-46.3); Red Blood Count 4.38 M/uL (4.70-6.10); White Blood Count 4.57 K/ul (4.8-10.8)
[2023-12-08 07:03] LABS: Calcium 8.6 mg/dl (8.6-10.3); Creatinine Clr Calc Pharmacy 65.7 ml/min; Est GFR (African American) 71.3 ml/min; Est GFR (Non-African American) 61.5 ml/min; Magnesium 1.9 mg/dl (1.7-2.4); Potassium 4.1 mmol/L (3.5-5.1)
--- NOTE | 2023-12-08 07:48 | Hospitalist Progress Note ---
Date of Service December 08, 2023 Assessment & Plan (1) Fever: Plan: No clear source for recurrent fevers. Patient now with 8 days of fevers. No leukocytosis, tachycardia, or signs of sepsis. XR without signs of osteo. ED discussed case with ortho. No need for ortho intervention at that time. Doppler without VTE. Blood and urine cultures remain negative. No mention of endocarditis on TTE. Knee without erythema/purulence/signs of infection. Tick borne panel negative Continue CTX/Dapto 3 phase bone scan to eval for osteo follow cultures (2) Hematochezia: Plan: Did have an instance of passage of blood clots. Patient with baseline constipation. Most likely bleeding internal hemorrhoid. Malignancy, diverticular bleed, etc also on the ddx Heme all stools Bowel regimen - miralax scheduled daily No active bleed - continue ASA and plavix rec outpatient colonoscopy (3) THOMAS (acute kidney injury): Plan: Likely secondary to bactrim and mild dehydration as evidence by SG 1.045. Resolved after hydration and discontinuation of Bactrim * trend daily BMP (4) Status post left knee replacement: Plan: As per HPI- appears to be healing well- was discharged on prophylactic antibiotics- Bactrim likely contributing to THOMAS * Hold Bactrim * Continue antibiotics as stated above (5) CAD (coronary artery disease): Plan: History of - with stents to LAD proximal and mid. With residual non-occlusive RCA disease * Continue medical management with statin, ISMN * Aspirin restarted (6) Hypothyroidism: Plan: * Continue synthroid (7) Sleep apnea: Plan: * CPAP with autopap as patient is unsure of his settings * to bring in home CPAP at earliest convienence (8) DVT prophylaxis: Plan Code status: full DVT ppx: ambulation, teds, ASA/Plavix FENGI: heart healthy Dispo: MedSurg Documentation reviewed and edited by Deedee Gutierrez MD - [facility] PGY-2. No direct supervision of Renay Llamas MS2 was performed by resident. See attending attestation for further documentation. Admission and Anticipated Discharge Date Admission Date: December 07, 2023 Supervising Physician Co-Signing Physician Notes I personally examined the patient and verified ku points of history and exam, discussed case, and agree with decision making and plan documented by Renay Llamas MSII, see discharge documentation same date. Subjective Today, patient reports feeling much better aside from his episode of fever last night. Patient denies abdominal pain, chest pain, and any more passage of blood clots in his stools. Review of Systems 2 Review of Systems: All systems reviewed & are unremarkable except as noted in HPI & below Physical Exam 2 Physical Exam: General: awake, alert, no acute distress Head: Normocephalic, atraumatic ENT: PERRL, EOMI, neck supple; no lymphadenopathy Neuro: alert and oriented x3 , normal mood and affect; fluent speech sensation intact and equal all extremities and dermatomes, CV: RRR; S1/S2 normal; no murmurs/rubs/gallops; pulses intact and symmetric at radial, DP, and PT Lungs: no acute respiratory distress; symmetrical chest wall expansion; clear breath sounds across all lung chatterjee; no wheezing GI: bowel sounds present; Soft; nondistended; no ascites; no rebound/guarding : negative CVA tenderness bilaterally Skin: left knee with incision intact with salo, no drainage, no erythema, surrounding ecchymosis noted Psych: Normal mood and affect Results & Data Results & Data Vital Signs (Past 12 Hours) Vital Signs Temp Pulse Pulse Resp BP Pulse Ox O2 Del Method 12/07/23 22:28 87 21 94 12/07/23 21:31 38.2 C H 80 18 113/64 95 Room Air FiO2 12/07/23 22:28 21 12/07/23 21:31 Laboratory Results 12/08/23 06:05 12/08/23 06:05 Resident Activity Tracking Resident Involvement: Resident Care Provided Care Provided: Adult Hospital Medicine (1) Fever Fever type: unspecified Qualified Code(s): R50.9 - Fever, unspecified
[2023-12-08] MEDS: CLOPIDOGREL BISULFATE 75 MG TAB PO SCH (08:13)
--- NOTE | 2023-12-08 13:51 | XCELERA ---
[id number]
--- NOTE | 2023-12-08 16:30 | Discharge Summary ---
Date of Service December 08, 2023 Admission HPI Per Admitting Provider 68 YOM with medical history of: Arthritis, GERD, HTN, Hx MRSA infection , HLD, CAD with stents (2021), MARJAN, Hypothyroidism, Obesity. Patient presents to the EMD today for complaints of fever, chills, feeling weak, and passing of blood clots in stool. Patient states that this has been going on for the past two days or so. He reports no sinus congestion, cough, abdominal pain, or urinary discomfort. He is however s/p 10 days of LEFT TKA performed here by Dr. Mays. He reports that he is on ASA and Plavix for DVT prophy post surgery as well as taking another asa at night. He also reports that he is placed on Bactrim by orthopaedics secondary to hx of "being susceptible to MRSA infection". He was placed on Cefadroxil on discharge and now on Bactrim per his report. He reports that he struggles with constipation and diarrhea at home and has noted passage of blood clots in his stools over the past few days as well. In the EMD the patient had routine labs performed, he was noted to febrile to 38.9, had blood cultures drawn, CT of abdomen and pelvis performed, CXR, and Knee Xray. His labs are without leukocytosis. He is noted with elevated ESR and CRP- will add procalcitonin on as well. His HGB levels are stable as well. CT abdomen and pelvis without acute source noted, he is with normal lipase as well as LFTS. Respiratory biofire is negative. He is pending ultrasound of his legs to eval for DVT. Left knee appears to be healing well without erythema or drainage and stalples are well approximated. Overall fever with no clear source of infection at this time. Await blood cultures, urine culture. Will place on empiric antibiotics in form of Rocephin and Daptomycin. Follow clinical course. For his report of bloody stools, will hold his ASA and Plavix for now, with likely grant of restarting these soon if we can trend out his bowel movements as well as trend HGB levels in am. CODE: FULL Principal Diagnosis post-op fever Discharge Exam General: awake, alert, no acute distress Head: Normocephalic, atraumatic ENT: PERRL, EOMI, neck supple Neuro: alert and oriented CV: RRR; S1/S2 normal; no murmurs/rubs/gallops; clinically well perfused Lungs: no acute respiratory distress; CTAB no wheezing GI: BS+ soft, non-tender, non-distended, obese abdomen Skin: left knee with incision intact with salo, no drainage, no erythema Psych: Normal mood and affect Discharge Data Allergies Allergy/AdvReac Type Severity Reaction Status Date / Time vancomycin Allergy Intermediate Red Man's Verified 12/07/23 00:48 Disease Consultations 12/07/23 01:57 ED Decision to Admit Stat Ordered Studies Chest CTA 12/06/23 23:15 FINDINGS: LUNGS: No focal consolidation, pleural effusion, or pneumothorax. Atelectasis at the lung bases. HEART: Cardiomegaly. VASCULATURE: No acute pulmonary embolism. Atherosclerotic changes of the aorta. THYROID: Within normal limits. MEDIASTINUM + LYMPH NODES: There are no pathologically enlarged mediastinal, hilar, or axillary lymph nodes. SUPERIOR ABDOMEN: Hepatic steatosis. MUSCULOSKELETAL: Degenerative changes. IMPRESSION: No acute pulmonary embolism. Chest X-Ray 12/06/23 23:15 FINDINGS: An AP, portable, upright chest radiograph is compared to study dated 10/27/2023. The heart is enlarged noting atherosclerotic calcification of the thoracic aorta. The pulmonary vasculature is noncongested. Chronic interstitial thickening is similar to previous. There is bibasilar scarring/atelectasis. The lungs and pleural spaces are otherwise clear. No pneumothorax is seen. The skeletal structures are osteopenic. The bony thorax is grossly intact. IMPRESSION: Cardiomegaly with no active disease in the chest. Knee X-Ray 12/06/23 23:15 FINDINGS: Total arthroplasty with patellar resurfacing and anterior midline skin salo. Small moderate joint effusion with circumferential soft tissue swelling. No acute fracture, dislocation or osseous erosion. IMPRESSION: 1. Total joint arthroplasty and patellar resurfacing with anterior midline skin salo. 2. Circumferential soft tissue swelling with joint effusion. 3. No acute osseous abnormality. Abdomen/Pelvis CT 12/06/23 23:18 FINDINGS: Lung bases: Unremarkable. No mass. No consolidation. Mediastinum: Small hiatal hernia. ABDOMEN: Liver: Hepatic steatosis. Gallbladder and bile ducts: Unremarkable. No calcified stones. No ductal dilation. Pancreas: Unremarkable. No mass. No ductal dilation. Spleen: Unremarkable. No splenomegaly. Adrenals: Unremarkable. No mass. Kidneys and ureters: Unremarkable. No solid mass. No hydronephrosis. Stomach and bowel: Unremarkable. No obstruction. No mucosal thickening. PELVIS: Appendix: No findings to suggest acute appendicitis. Bladder: Unremarkable. No mass. Reproductive: Unremarkable as visualized. ABDOMEN and PELVIS: Intraperitoneal space: Unremarkable. No free air. No significant fluid collection. Bones/joints: Degenerative changes of the spine. Posterior fusion L5-S1. No acute fracture. No dislocation. Soft tissues: Unremarkable. Vasculature: Atherosclerotic changes of the aorta. No abdominal aortic aneurysm. Lymph nodes: Unremarkable. No enlarged lymph nodes. IMPRESSION: No acute findings in the abdomen or pelvis. Venous Doppler Study 12/07/23 02:08 FINDINGS: There is no sonographic evidence of deep venous thrombosis identified in the left lower extremity. The common femoral, superficial femoral, and popliteal veins are patent and normally compressible. The greater saphenous vein and the profunda femoris vein at the junction with the common femoral vein are clear. The visualized calf veins are patent. IMPRESSION: There is no sonographic evidence of deep venous thrombosis identified in the left lower extremity. Hospital Course (1) Fever: No clear source for recurrent fevers. Patient now with 8 days of fevers. No leukocytosis, tachycardia, or signs of sepsis. XR without signs of osteo. ED discussed case with ortho. No need for ortho intervention at that time. Doppler without VTE. Blood and urine cultures remain negative. No mention of e ndocarditis on TTE. Knee without erythema/purulence/signs of infection. Tick borne panel negative. BCx NGTD x 24H. Likely post-op fever from non-infectious etiology. Return precautions given. Has f/u with ortho 12/13. (2) Hematochezia: Did have an instance of passage of blood clots. Patient with baseline constipation. Most likely bleeding internal hemorrhoid. Malignancy, diverticular bleed, etc also on the ddx. No more active bleeding. Continue bowel regimen. Recommend outpatient colonoscopy. (3) THOMAS (acute kidney injury): Likely secondary to Bactrim and mild dehydration as evidence by SG 1.045. Resolved after hydration. (4) Status post left knee replacement: As per HPI- appears to be healing well- was discharged on prophylactic antibiotics- Bactrim likely contributing to THOMAS. Resume Bactrim on discharge. Follow up with Dr. Davon for post-op visit. (5) CAD (coronary artery disease): History of - with stents to LAD proximal and mid.With residual non-occlusive RCA disease. Continue medical management with statin, ISMN. Aspirin restarted as no further bleeding. (6) Hypothyroidism: * Continue synthroid (7) Sleep apnea: * CPAP with autopap as patient is unsure of his settings * to bring in home CPAP at earliest convienence (8) DVT prophylaxis: Total Time Total Time Spent Total Time Spent (In Minutes): See attending attestation Discharge Plan Discharge Items Patient Disposition: Home - Self-Care Reason For Visit: FEVER Discharge Diagnosis: post-op fever without infectious cause Condition on Discharge: Good Activity: Per Instructions section Non-emergency contact: Primary Care Provider and Surgeon Call non-emergency contact if: you have any medication questions, your pain is unusual for you, your temperature is above 101.5, your wound has increased redness, your wound has increased drainage and your wound pain has increased Follow-up/Referrals: Carolina Rosales CRNP [Primary Care Provider] - Diet: Heart Healthy Addtl Attending Provider Instructions: You were seen in the hospital for recurrent fevers in the post-operative period. You were started on broad spectrum antibiotics. There were no signs of infection in your knee, lungs, urine, or blood. We ruled out blood clots as well as this can be a cause for post-operative fevers. At this point this is likely a non- infectious post-operative fever and should resolve with time. If you notice any changes in your wound - redness, warmth, pain, drainage contact your surgeon. At this point we would recommend continuing the previously prescribed Bactrim and following up with your surgeon on an outpatient basis. Keep your scheduled follow up appointment with ortho. There was also the concern of blood in your stool. We started you on Miralax daily, continue this outpatient. You did not have any more episodes of blood in your stool. I would recommend an outpatient colonoscopy for further work up, but this may have been in the setting of constipation. Discuss at follow up appointment with your primary care doctor. Pending Studies at Discharge: No Stand-Alone Forms: My Qpyn, Smoking Cessation Medications and DC Order Prescriptions: New polyethylene glycol 3350 [Miralax] 17 gram Powder In Packet 17 g PO DAILY Qty: 150 0RF Continued sulfamethoxazole-trimethoprim [Bactrim DS] 800-160 mg tablet 1 tab PO BID 7 Days Qty: 14 0RF Rx Instructions: STARTED 12/01/23 FOR 7 DAYS levothyroxine 175 mcg tablet 175 mcg PO DAILYBB cyanocobalamin (vitamin B-12) [Vitamin B-12] 1,000 mcg Tablet 1,000 mcg PO DAILY docusate sodium 100 mg Capsule 100 mg PO BID magnesium 250 mg Tablet 250 mg PO DAILY cholecalciferol (vitamin D3) [Vitamin D3] 25 mcg (1,000 unit) Capsule 25 mcg PO DAILY potassium citrate 99 mg Capsule 99 mg PO DAILY isosorbide mononitrate 30 mg tablet extended release 24 hr 30 mg PO QAM doxepin 75 mg capsule 75 mg PO HS clopidogrel 75 mg tablet 75 mg PO QAM nadolol 20 mg tablet 20 mg PO QAM celecoxib 100 mg capsule 100 mg PO HS rosuvastatin 40 mg tablet 40 mg PO QAM oxycodone 5 mg Tablet 5 mg PO Q4H PRN (Reason: pain) Qty: 30 0RF aspirin 81 mg Capsule 81 mg PO BID 42 Days Qty: 0 0RF Discharge Orders: Discharge Order (Routine); Ordered 12/08/23 Ordered By: Deedee Aquino/Other Patient Handouts: DVT Post Op Prevention Admission Data Admit Date/Time: 12/08/23 08:18 Attending Provider: Tracey Evans Admit Provider: Ady Trujillo Primary Care Provider: Carolina Rosales Other Providers: Edgard Rai; [facility] Other Interventions: Discharge Summary Assessment (RN) Last Done: 12/08/23 17:16 Supervising Physician Co-Signing Physician Notes I personally examined the patient and verified ku points of history and exam, discussed case, and agree with decision making and plan documented by Dr. Gutierrez. Patient feeling well, no source of infection identified to contribute to post operative fever. Blood cultures negative. Surgical incision healing well, appears c/d/i. VSS. Patient without additional symptoms. Will continue patient on bactrim upon discharge. Advised monitoring closely for additional fevers. Patient has follow-up next week with orthopedics for suture removal. Patient and understanding and agree with plan. Resident Activity Tracking Resident Involvement: Resident Care Provided Care Provided: Adult [facility]
--- NOTE | 2023-12-09 13:27 | Communication Note ---
Date of Service: December 09, 2023 Received portal message from patient regarding fever and rash. Patient developed pruritic rash after restarting Bactrim. Patient also with 104 fever overnight. Little to no improvement with Benadryl 50 mg Q4H. Discussed that patient may be having a drug reaction. Concern for DRESS. Recommended return to ED. Patient declined as they live 3 [place] away. Will switch to clindamycin 300 mg TID and have patient follow up closely with ortho - appointment 12/13. Patient also requesting steroids for rash reaction. Will do 40 mg x 5 days of prednisone. Emphasized importance of return to care if any deterioration. Patient agreeable. Scripts called in to preferred pharmacy. Does note having prior red man reaction to vanc requiring steroids. Attending attestation: I was present during conversation with Mr. Duong and Dr. Roberts. Mr. 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 Discussed concern of dress syndrome with patient. He is understanding of concern but does not want to return to hospital. He travels over an hour and a half to get here. He has an appointment scheduled with orthopedics for staple removal next week. Advised we can trial a course of steroids and an alternate antibiotic but advised patient that if any worsening fevers or cutaneous signs present I would recommend he immediately seek medical attention. Patient and his are both in agreement with plan. Resident Activity Tracking Resident Involvement: Resident Care Provided Care Provided: Adult [facility]
[2023-12-10 02:42] LABS: Babesia microti DNA Not Detected (Not Detected)
== END 2023-12-08 17:52 | disposition home health service (06) | DRG 864 ==
LOC: EDINP 20:50 → ED 20:50 → SUATTDRO 12-07 02:27 → 3E 12-07 04:52